=== PATIENT | male | born 1970 | race Caucasian/White ===

== ENCOUNTER 2017-09-04 17:03 | Inpatient (IN) ==
[2017-09-04] MEDS ORDERED: *HR* LORazepam 2 MG/ML VIAL IVP ONE ×2 (17:08→19:29)
[2017-09-04] MEDS ORDERED: diazePAM 10 MG/2 ML SYRINGE IVP PRN (17:18)
--- NOTE | 2017-09-04 17:19 | Emergency Department Note ---
Disposition Clinical Impression: Alcohol withdrawal delirium Suicidal behavior Qualifiers: Attempted self-injury: with attempted self-injury Qualified Code(s): T14.91XA - Suicide attempt, initial encounter Disposition: Still a Patient Condition: Fair Forms: ED Satisfaction Letter, Work/School Release Time of Disposition: 17:35 General Adult HPI - General Chief complaint: ED General Medical Stated complaint: ETOH WITHDRAWAL Source: patient Limitations: no limitations Nursing Notes Reviewed: Yes Vital Signs Reviewed: Yes - History of Present Illness HPI Narrative: 47-year-old male presents to the emergency department with concern for alcohol withdrawal. Patient was recently incarcerated for 48 hours. He was released today. He was sweaty, had chills, in the [facility]pc, patient stated he was seeing snakes. Patient stated that he tried to hurt himself today. EMS states that presents stating that he had an object tied around his neck that was attached to the bed. Patient denies any previous psychiatric history or suicide attempts. Pain Scale: 0 - Related Data Previous Rx's Medication Instructions Recorded Cyclobenzaprine [Flexeril] 10 mg PO TID PRN #15 tablet 02/10/16 Nabumetone [Relafen] 500 mg PO BID PRN #15 tablet 02/10/16 Clindamycin [Cleocin] 300 mg PO BID #20 capsule 06/23/16 HYDROcodone/Acet 5/325 mg [[place] 1 tab PO Q6H PRN #6 tab 06/23/16 5-325 mg] Albendazole [Albenza] 400 mg PO ONCE #400 mg 09/29/16 Amlodipine Besylate 2.5 mg PO DAILY #30 tablet 09/29/16 Blood Pressure Test Kit-Large 1 each MC DAILY #1 kit 09/29/16 [Blood Pressure Monitor] Ondansetron [Zofran] 8 mg PO Q8HR PRN #9 tablet 09/29/16 Allergies Allergy/AdvReac Type Severity Reaction Status Date / Time No Known Allergies Allergy Verified 10/26/15 20:06 All systems ED: reviewed and negative except as stated. Review of Systems: As Per HPI Constitutional: Reports: chills Cardiovascular: Reports: chest pain Respiratory: Denies: dyspnea Gastrointestinal: Denies: nausea, vomiting Integumentary: Denies: rash Psychiatric: Reports: suicidal thoughts, visual hallucinations Past Medical History - Past Medical History Medical history: Reports: hypertension Psychiatric history: Reports: no psych history - Social History Smoking Status: Current every day smoker Smokeless Tobacco Status: No Alcohol use: Reports: unknown Drug use: Reports: none, cocaine, opiates, IV Drug Use, prescription drug abuse Physical Exam General: 47-year-old male who is diaphoretic Head: autraumatic, EOMI, no conjuncitval pallor, no scleral icterus, Mouth: oral mucous membranes moist Neck: neck soft, trachea midline Chest:: Equal chest wall rise Lungs: Normal lungs sounds bilaterally, no wheezes, no respiratory distress Heart: normal heart sounds, tachycardic and normal rhythm, Abdomen: soft, non-tender, no rigidity, no guarding, no rebdound tenderness Lower Extremities: no pedal edema, calves non-tender Integumentary: Skin warm, dry, and intact Neuro: Alert and oriented to person, place, time. No focal neurologic deficits Psych: Anxious appearing, suicidal thoughts - General Limitations: no limitations General appearance: alert, in no apparent distress Course Vital Signs Temperature 97.1 F L 09/04/17 17:06 Pulse Rate 68 09/04/17 17:06 Respiratory Rate 20 09/04/17 17:06 Blood Pressure 189/92 09/04/17 17:06 O2 Sat by Pulse Oximetry 98 09/04/17 17:06 Temperature 97.1 F L 09/04/17 17:06 Pulse Rate 68 09/04/17 17:06 Respiratory Rate 20 09/04/17 17:06 Blood Pressure 189/92 09/04/17 17:06 O2 Sat by Pulse Oximetry 98 09/04/17 17:06 Oxygen Delivery Oxygen Delivery Room Air Medical Decision Making - [facility] Narrative Medical decision making narrative: 47-year-old male presents to the emergency department with concerns for alcohol withdrawal accompanied by suicidal behavior and thoughts, visual hallucinations , hypertension, diaphoresis. At this time, we will give this patient suicidal precautions as well as a sitter. We will obtain a urine drug screen, chest x- ray, EKG, ethanol level, salicylate level, Tylenol level, order Ci[place] protocol. Patient will be transferred over to the psychiatric area of the emergency department under the care of Dr. Lopez and Dr. Hutchison. Vital Signs Temperature 97.1 F L 09/04/17 17:06 Pulse Rate 68 09/04/17 17:06 Respiratory Rate 20 09/04/17 17:06 Blood Pressure 189/92 09/04/17 17:06 O2 Sat by Pulse Oximetry 98 09/04/17 17:06 Temperature 97.1 F L 09/04/17 17:06 Pulse Rate 68 09/04/17 17:06 Respiratory Rate 20 09/04/17 17:06 Blood Pressure 189/92 09/04/17 17:06 O2 Sat by Pulse Oximetry 98 09/04/17 17:06 Oxygen Delivery Oxygen Delivery Room Air S.B.Shantanu - S.B.A.RSobia Transition of Care: Report was provided to Dr. Lopez and Dr. Hutchison Situation: Demographics, MOA Background: Presenting Complaint, Relevant PMH, Meds, & Allergies Assessment: Vital Signs, Exam Concerns Recommendation: Barrier(s) to disposition, Recommendation based on pending studies, treatments, or consults SDavid Report Given to: Dr. Lopez and Dr. Foster SchafferASobiaRSobia Repor Time: 17:37
--- NOTE | 2017-09-04 17:36 | Emergency Department Note ---
Disposition Clinical Impression: Alcohol withdrawal delirium, Suicidal behavior Disposition: Admitted As Inpatient Condition: Critical General Adult HPI - General Chief complaint: ED General Medical Stated complaint: ETOH WITHDRAWAL Time Seen by Provider: 09/04/17 17:31 Source: patient Limitations: no limitations - History of Present Illness Pain Scale: 0 - Related Data Previous Rx's Medication Instructions Recorded Cyclobenzaprine [Flexeril] 10 mg PO TID PRN #15 tablet 02/10/16 Nabumetone [Relafen] 500 mg PO BID PRN #15 tablet 02/10/16 Clindamycin [Cleocin] 300 mg PO BID #20 capsule 06/23/16 HYDROcodone/Acet 5/325 mg [[place] 1 tab PO Q6H PRN #6 tab 06/23/16 5-325 mg] Albendazole [Albenza] 400 mg PO ONCE #400 mg 09/29/16 Amlodipine Besylate 2.5 mg PO DAILY #30 tablet 09/29/16 Blood Pressure Test Kit-Large 1 each MC DAILY #1 kit 09/29/16 [Blood Pressure Monitor] Ondansetron [Zofran] 8 mg PO Q8HR PRN #9 tablet 09/29/16 Allergies Allergy/AdvReac Type Severity Reaction Status Date / Time No Known Allergies Allergy Verified 10/26/15 20:06 Constitutional: Reports: chills Cardiovascular: Reports: chest pain Respiratory: Denies: dyspnea Gastrointestinal: Denies: nausea, vomiting Integumentary: Denies: rash Psychiatric: Reports: suicidal thoughts, visual hallucinations Past Medical History - Past Medical History Medical history: Reports: hypertension Psychiatric history: Reports: no psych history - Social History Smoking Status: Current every day smoker Smokeless Tobacco Status: No Alcohol use: Reports: unknown Drug use: Reports: none, cocaine, opiates, IV Drug Use, prescription drug abuse Physical Exam - General Limitations: no limitations General appearance: alert, in no apparent distress Course Vital Signs Temperature 97.1 F L 09/04/17 17:06 Pulse Rate 68 09/04/17 17:06 Respiratory Rate 20 09/04/17 17:06 Blood Pressure 189/92 09/04/17 17:06 O2 Sat by Pulse Oximetry 98 09/04/17 17:06 Temperature 98.3 F 09/04/17 19:17 Pulse Rate 74 09/04/17 19:17 Respiratory Rate 17 09/04/17 19:17 Blood Pressure 150/103 09/04/17 19:17 O2 Sat by Pulse Oximetry 98 09/04/17 19:17 Oxygen Delivery Oxygen Delivery Room Air Medical Decision Making - Lab Data Result diagrams: 09/04/17 17:15 09/04/17 17:19 Lab Results 09/04/17 09/04/17 09/04/17 Range/Units 17:15 17:19 17:19 WBC 8.7 (4.3-11.1) K/mcL RBC 4.89 (4.19-5.50) M/mcL Hgb 15.3 (12.9-16.9) g/dL Hct 45.9 (37.5-50.1) % MCV 93.9 (83.0-100.0) fL MCH 31.3 (28.0-33.3) pg MCHC 33.3 (31.6-35.5) g/dL RDW 12.8 (11.5-14.5) % Plt Count 231 (140-400) K/mcL MPV 10.0 (9.4-12.4) fL Immature Gran % 0.2 (0-4) % Seg Neutrophils % 57.5 % Lymphocytes % 30.8 % Monocytes % 8.8 % Eosinophils % 2.5 % Basophils % 0.2 % Neutrophils # 5.0 (1.6-8.9) K/mcL Lymphocytes # 2.7 (0.6-4.6) K/mcL Monocytes # 0.8 (0.0-1.3) K/mcL Eosinophils # 0.2 (0.0-0.6) K/mcL Basophils # 0.0 (0.0-0.2) K/mcL Sodium 141 (136-145) mEq/L Potassium 4.3 (3.5-4.5) mEq/L Chloride 109 (98-109) mEq/L Carbon Dioxide 24 (19-29) mEq/L BUN 15 (8-26) mg/dL Creatinine 1.23 (0.72-1.25) mg/dL Est GFR ( Amer) > 60 (> 60) Est GFR (Non-Af Amer) > 60 (> 60) BUN/Creatinine Ratio 12 (6-26) Glucose 104 H (70-99) mg/dL Calculated Osmolality 293 (280-300) Calcium 9.3 (8.6-10.8) mg/dL Total Bilirubin 0.6 (0.2-1.2) mg/dL AST 72 H (5-34) Units/L ALT 163 H (0-55) Units/L Alkaline Phosphatase 98 (38-126) Units/L Troponin I 0.00 (0-0.03) ng/mL Serum Total Protein 7.6 (6.0-8.3) g/dL Albumin 3.7 (3.5-5.0) g/dL Globulin 3.9 H (2.4-3.5) g/dL Albumin/Globulin Ratio 0.9 L (1.1-2.2) Salicylates < 5.0 L (15-30) mg/dL Acetaminophen < 1.0 L (10-30) mcg/mL Ethyl Alcohol < 10 (0-10) mg/dL Attestation Statement - Attestation Attestation: I examined this patient and my medical decision-making was reviewed with the Resident Physician. I agree with the documented findings, disposition and treatment plan as described except to the extent set forth below. [id number] time providing Patient sent from the half-way due to suspected alcohol withdrawal. Patient drinks 18 beers daily. Last drink 48 hours ago. He appears in no acute distress on exam. He admitted to the other providers that he was suicidal
[2017-09-04 17:41] LABS: Alanine Aminotransferase 163 Units/L (0-55); Albumin 3.7 g/dL (3.5-5.0); Albumin/Globulin Ratio 0.9 (1.1-2.2); Alkaline Phosphatase 98 Units/L (38-126); Aspartate Amino Transferase 72 Units/L (5-34); BUN/Creatinine Ratio 12 (6-26); Bilirubin,Total 0.6 mg/dL (0.2-1.2); Blood Urea Nitrogen 15 mg/dL (8-26); Calcium 9.3 mg/dL (8.6-10.8); Carbon Dioxide 24 mEq/L (19-29); Chloride 109 mEq/L (98-109); Globulin 3.9 g/dL (2.4-3.5); Glucose 104 mg/dL (70-99); Osmolality,Calculated 293 (280-300); Potassium 4.3 mEq/L (3.5-4.5); Sodium 141 mEq/L (136-145); Total Protein 7.6 g/dL (6.0-8.3); eGFR For African Americans > 60 (> 60); eGFR For Non-African Americans > 60 (> 60)
--- NOTE | 2017-09-04 17:49 | Emergency Department Note ---
Disposition Clinical Impression: Alcohol withdrawal delirium Suicidal behavior Qualifiers: Attempted self-injury: with attempted self-injury Qualified Code(s): T14.91XA - Suicide attempt, initial encounter Disposition: Admitted As Inpatient Condition: Critical Referrals: NONE,PCP [Primary Care Provider] - Forms: ED Satisfaction Letter, Work/School Release Time of Disposition: 18:34 General Adult HPI - General Chief complaint: ED General Medical Stated complaint: ETOH WITHDRAWAL Time Seen by Provider: 09/04/17 17:31 Source: patient Limitations: no limitations Nursing Notes Reviewed: Yes Vital Signs Reviewed: Yes - History of Present Illness HPI Narrative: Patient received as sign-out from Dr. Mora and Dr. Roman. Please refer to their note for intake history and physical exam. Mr. Menezes, a 47-year-old male, presents after being released from [facility] home for evaluation of suspected alcohol withdrawal. Patient has a long-standing history of every day consumption of 1812 ounce cans of beer +2 pints of liquor. Last drink was 48 hours ago. He reportedly had visual hallucinations of snakes crawling around him earlier today and was found in group home with a sheet tied around his neck. He admits to suicidal ideations at that time but denies suicidal or homicidal ideations at this time. PMH: Alcoholism. No psychiatric history. SH: None Medications: None Allergies: None Pain Scale: 0 - Related Data Previous Rx's Medication Instructions Recorded Cyclobenzaprine [Flexeril] 10 mg PO TID PRN #15 tablet 02/10/16 Nabumetone [Relafen] 500 mg PO BID PRN #15 tablet 02/10/16 Clindamycin [Cleocin] 300 mg PO BID #20 capsule 06/23/16 HYDROcodone/Acet 5/325 mg [[place] 1 tab PO Q6H PRN #6 tab 06/23/16 5-325 mg] Albendazole [Albenza] 400 mg PO ONCE #400 mg 09/29/16 Amlodipine Besylate 2.5 mg PO DAILY #30 tablet 09/29/16 Blood Pressure Test Kit-Large 1 each MC DAILY #1 kit 09/29/16 [Blood Pressure Monitor] Ondansetron [Zofran] 8 mg PO Q8HR PRN #9 tablet 09/29/16 Allergies Allergy/AdvReac Type Severity Reaction Status Date / Time No Known Allergies Allergy Verified 10/26/15 20:06 All systems ED: reviewed and negative except as stated. Review of Systems: As Per HPI Constitutional: Reports: chills Cardiovascular: Reports: chest pain Respiratory: Denies: dyspnea Gastrointestinal: Denies: nausea, vomiting Integumentary: Denies: rash Psychiatric: Reports: suicidal thoughts, visual hallucinations Past Medical History - Past Medical History Medical history: Reports: hypertension Psychiatric history: Reports: no psych history - Social History Smoking Status: Current every day smoker Smokeless Tobacco Status: No Alcohol use: Reports: unknown Drug use: Reports: none, cocaine, opiates, IV Drug Use, prescription drug abuse Physical Exam Vital Signs Reviewed General: Patient is alert, oriented, and in no acute distress. Patient is hypertensive, skin cool and clammy. HEENT: No facial asymmetry. Head is normocephalic and atraumatic. PERRLA, EOMI. because moist. Trachea midline. Cardiovascular: Heart regular rate and rhythm without clicks, rubs, gallops, or murmurs. No JVD. PMI nondisplaced. Radial pulses 2/4 equal. Respiratory: Symmetric chest rise with good respiratory effort. Bilateral breath sounds are clear without wheezing, crackles, or rhonchi. Abdomen: Bowel sounds present normoactive x-4 quadrants. Abdomen is soft, nondistended, and nontender. Musculoskeletal: Muscle strength 5/5 and symmetric bilaterally in upper and lower extremities. Neuro: Cranial nerves II through XII without deficit. Sensation light touch intact. Psych: Patient's affect is appropriate for situation. - General Limitations: no limitations General appearance: alert, in no apparent distress Course Course Narrative: Patient presents for evaluation of alcohol withdrawal. Patient has been in alcohol withdrawal previously and states this is the worst he is experienced. He has a history of chronic alcoholism with previous history of polysubstance abuse. Currently only uses alcohol. I discussed the patient my concern about his withdrawal and how alcohol withdrawal can be deadly. He agrees to admission overnight for continued evaluation and management. Patient symptomatically is substantially improved after 2 mg Ativan. He has also received a thiamine. I discussed the patient with the admitting hospitalist, Dr. Bustamante, who agrees to accept the patient Vital Signs Temperature 97.1 F L 09/04/17 17:06 Pulse Rate 68 09/04/17 17:06 Respiratory Rate 20 09/04/17 17:06 Blood Pressure 189/92 09/04/17 17:06 O2 Sat by Pulse Oximetry 98 09/04/17 17:06 Temperature 97.1 F L 09/04/17 17:06 Pulse Rate 68 09/04/17 17:06 Respiratory Rate 20 09/04/17 17:06 Blood Pressure 189/92 09/04/17 17:06 O2 Sat by Pulse Oximetry 98 09/04/17 17:06 Oxygen Delivery Oxygen Delivery Room Air Medical Decision Making - Lab Data Lab results reviewed: Yes I reviewed the patient's lab results. Result diagrams: 09/04/17 17:15 09/04/17 17:19 Lab Results 09/04/17 09/04/17 09/04/17 Range/Units 17:15 17:19 17:19 WBC 8.7 (4.3-11.1) K/mcL RBC 4.89 (4.19-5.50) M/mcL Hgb 15.3 (12.9-16.9) g/dL Hct 45.9 (37.5-50.1) % MCV 93.9 (83.0-100.0) fL MCH 31.3 (28.0-33.3) pg MCHC 33.3 (31.6-35.5) g/dL RDW 12.8 (11.5-14.5) % Plt Count 231 (140-400) K/mcL MPV 10.0 (9.4-12.4) fL Immature Gran % 0.2 (0-4) % Seg Neutrophils % 57.5 % Lymphocytes % 30.8 % Monocytes % 8.8 % Eosinophils % 2.5 % Basophils % 0.2 % Neutrophils # 5.0 (1.6-8.9) K/mcL Lymphocytes # 2.7 (0.6-4.6) K/mcL Monocytes # 0.8 (0.0-1.3) K/mcL Eosinophils # 0.2 (0.0-0.6) K/mcL Basophils # 0.0 (0.0-0.2) K/mcL Sodium 141 (136-145) mEq/L Potassium 4.3 (3.5-4.5) mEq/L Chloride 109 (98-109) mEq/L Carbon Dioxide 24 (19-29) mEq/L BUN 15 (8-26) mg/dL Creatinine 1.23 (0.72-1.25) mg/dL Est GFR ( Amer) > 60 (> 60) Est GFR (Non-Af Amer) > 60 (> 60) BUN/Creatinine Ratio 12 (6-26) Glucose 104 H (70-99) mg/dL Calculated Osmolality 293 (280-300) Calcium 9.3 (8.6-10.8) mg/dL Total Bilirubin 0.6 (0.2-1.2) mg/dL AST 72 H (5-34) Units/L ALT 163 H (0-55) Units/L Alkaline Phosphatase 98 (38-126) Units/L Troponin I 0.00 (0-0.03) ng/mL Serum Total Protein 7.6 (6.0-8.3) g/dL Albumin 3.7 (3.5-5.0) g/dL Globulin 3.9 H (2.4-3.5) g/dL Albumin/Globulin Ratio 0.9 L (1.1-2.2) Salicylates < 5.0 L (15-30) mg/dL Acetaminophen < 1.0 L (10-30) mcg/mL Ethyl Alcohol < 10 (0-10) mg/dL - Radiology Data Radiology results reviewed: Yes I reviewed the patient's radiology results. - EKG Data EKG #1 EKG attestation: Yes I reviewed and interpreted this EKG. EKG results narrative: EKG dated 04 September 2017 at 18:10 interpreted as sinus rhythm with a rate of 68. NC 196, QRS 118, QT/QTc 402/418. Mild IVCD. Normal axis. Nonspecific ST T changes. Compared to previous EKG dated 10/26/2015 showing no acute ischemic changes.
[2017-09-04 17:54] LABS: Acetaminophen < 1.0 mcg/mL (10-30); Ethanol < 10 mg/dL (0-10); Salicylate < 5.0 mg/dL (15-30)
[2017-09-04] MEDS ORDERED: Thiamine (B-1) 100 MG, Folic Acid 1 MG, MVI, adult with vitamin K 10 ML in 0.9 % Sodi... IVPB SCH (18:00)
[2017-09-04 18:09] LABS: Basophils % 0.2 %; Eosinophils # 0.2 K/mcL (0.0-0.6); Eosinophils % 2.5 %; Hematocrit 45.9 % (37.5-50.1); Hemoglobin 15.3 g/dL (12.9-16.9); Immature Granulocytes % 0.2 % (0-4); Lymphocytes # 2.7 K/mcL (0.6-4.6); Lymphocytes % 30.8 %; Mean Corpuscular HGB Conc 33.3 g/dL (31.6-35.5); Mean Corpuscular Hemoglobin 31.3 pg (28.0-33.3); Mean Corpuscular Volume 93.9 fL (83.0-100.0); Monocytes # 0.8 K/mcL (0.0-1.3); Monocytes % 8.8 %; Platelet Count 231 K/mcL (140-400); Red Blood Count 4.89 M/mcL (4.19-5.50); Red Cell Distribution Width 12.8 % (11.5-14.5); Segmented Neutrophils % 57.5 %
[2017-09-04] MEDS ORDERED: Acetaminophen 325 MG TABLET PO ONE (18:32)
[2017-09-04] MEDS ORDERED: *HR* LORazepam 2 MG/ML VIAL IVP PRN ×2 (19:42)
[2017-09-04] MEDS ORDERED: Ipratropium/Albuterol Neb 3 ML IH PRN (19:44)
[2017-09-04] MEDS ORDERED: Acetaminophen 325 MG TABLET PO PRN (19:45)
[2017-09-04] MEDS ORDERED: Mag Hydrox/Al Hydrox/Simeth 30 ML UDC PO PRN (19:45)
[2017-09-04] MEDS ORDERED: Naloxone 0.4 MG/ML INJ IVP PRN (19:45)
[2017-09-04] MEDS ORDERED: *HR* Morphine 2 MG/ML SYRINGE IVP PRN (19:45)
[2017-09-04] MEDS ORDERED: Ondansetron 4 MG/2 ML VIAL IVP PRN (19:45)
--- NOTE | 2017-09-04 19:56 | Internal Med History&Physical ---
Date of Encounter: 09/04/17 Time of Encounter: 19:53 Assessment and Plan (1) Alcohol withdrawal delirium Current visit: Yes Status: Acute acute alcohol withdrawal start librium and taper ATIVAN iv Per CIWA scale transfer to 2 N, may start Precedex if needed Sitter Psych consult due to suicedal ideation Banana bag, thiamine, Folate and B complex Omeprazole for Gi, sub Q heparin , Admitted as inpatient, expected to stay here more than 2 midnights, full code, time spent: 40 min Urine tox screen (2) Suicidal behavior Current visit: Yes Status: Acute Qualifiers: Attempted self-injury: with attempted self-injury Qualified Code(s): T14.91XA - Suicide attempt, initial encounter (3) Tobacco abuse Current visit: Yes Status: Acute Smoking cessation counseling, nicotine patch (4) Accelerated hypertension Current visit: Yes Status: Acute Continue amlodipine, hydralazine IV as needed (5) Polysubstance abuse Current visit: Yes Status: Acute send a urine tox screen (6) Transaminitis Current visit: Yes Status: Acute Likely related to alcohol, although ALT is higher may check for Hep C Internal Medicine - H&P: HPI Chief complaint: Symptoms of alcohol withdrawal Admitted From: Emergency Dept History of present illness: Mr. Vale is a 47 year old male with a past medical history of suicidal ideation, tobacco use, polysubstance abuse who came to the emergency room complaining of symptoms of alcohol withdrawal, apparently, he was incarcerated for 48 hours and got released earlier today, he was sweaty and having hallucinations seeing snakes in the floor. According to prior notes he tried to hurt himself earlier and had suicidal ideations, was found with a rope around his neck. He mentions that he drinks about 18 beers a day and 2 pints of hard liquor/Gin almost every day. He is shaking, his AST 72 ALT 163. Blood pressure 189/97. Has received so far 2.5 mg of diazepam and 2 mg of Ativan. Alcohol level was less than 10. Urine tox screen has not been performed yet. Says that he is not having any suicidal ideation at the moment and does not want to harm himself or others. Past Med Surg Social Fam HX - Past Medical History Medical history: hypertension, other (Hypertension, alcohol abuse, polysubstance abuse, anxiety, tobacco use) Psychiatric history: depression, other (Suicidal ideation in the past) - Past Surgical History Surgical History: other (Had a throat cyst removed) - Social History Smoking Status: Current every day smoker Packs per day: One pack per day Smokeless Tobacco Status: No Alcohol use: heavy (2 pints of gin and 18 beers almost every day) Drug use: none, cocaine, opiates, IV Drug Use, prescription drug abuse - Additional Family History Additional family history: Mother with diabetes and father with a myocardial infarction in his 50s Internal Medicine - H&P: Meds Cyclobenzaprine [Flexeril] 10 mg PO TID PRN #15 tablet 02/10/16 [Rx] Nabumetone [Relafen] 500 mg PO BID PRN #15 tablet 02/10/16 [Rx] Clindamycin [Cleocin] 300 mg PO BID #20 capsule 06/23/16 [Rx] HYDROcodone/Acet 5/325 mg [[place] 5-325 mg] 1 tab PO Q6H PRN #6 tab 06/23/16 [Rx] Albendazole [Albenza] 400 mg PO ONCE #400 mg 09/29/16 [Rx] Amlodipine Besylate 2.5 mg PO DAILY #30 tablet 09/29/16 [Rx] Blood Pressure Test Kit-Large [Blood Pressure Monitor] 1 each MC DAILY #1 kit [Rx] Ondansetron [Zofran] 8 mg PO Q8HR PRN #9 tablet 09/29/16 [Rx] 3 Allergy/AdvReac Type Severity Reaction Status Date / Time No Known Allergies Allergy Verified 10/26/15 20:06 All Systems PM: A 10-system review of systems was performed and is negative for pertinent findings except as documented above in the HPI. Review of systems: Denies chest pain, shortness of breath, other systems out of the 10 reviewed were negative - Constitutional Vitals: Temp Pulse Resp BP Pulse Ox 98.3 F 74 17 150/103 98 09/04/17 19:17 09/04/17 19:17 09/04/17 19:17 09/04/17 19:17 09/04/17 19:17 General appearance: Present: A&O X 3 - Head Head exam: Present: atraumatic, normocephalic - Eye Eye exam: Present: PERRL, conjuntiva pink, sclera anicteric Pupils: Present: PERRL - Neck Neck exam general surgery: Present: supple, trachea midline. Absent: lymphadenopathy - Respiratory Respiratory exam: Present: CTAB. Absent: accessory muscle use, rales, rhonchi, wheezes - Cardiovascular Cardiovascular exam: Present: RRR, +S1, +S2. Absent: diastolic murmur, gallop, rubs, systolic murmur - GI/Abdominal GI/Abdominal exam: Present: normal bowel sounds, soft, no peritoneal signs. Absent: distended, tenderness Additional comments: Tremors very evident in both hands, patient is very anxious - Extremities Exam Extremities exam: Present: warm, radial pulses palpable and symmetrical. Absent : calf tenderness, cyanotic, pedal edema - Neurological Exam Neurological exam: Present: CN II-XII intact, oriented X3, no focal deficits. Absent: pronater drift, facial droop, speech deficit - Skin Skin exam: Present: dry, intact Internal Med - H&P Results - Labs CBC & Chem 7: 09/04/17 17:15 09/04/17 17:19
[2017-09-04] MEDS: Nicotine 21 MG PATCH.TD24 TD SCH (21:30)
[2017-09-04] MEDS: amLODIPine 5 MG TABLET PO SCH (21:30)
[2017-09-04] MEDS ORDERED: Dexmedetomidine HCl 400 MCG/100 ML MLS IVC ONE (22:32)
[2017-09-04] MEDS: *HR* LORazepam 2 MG/ML VIAL IVP PRN (22:33)
[2017-09-04] MEDS: Dexmedetomidine HCl 400 MCG/100 ML MLS IVC SCH (22:34)
--- NOTE | 2017-09-04 23:48 | Emergency Department Note ---
START Narrative - START START: I did not see this patient as it was turned over to Dr Lopez It was assigned to me initially but I did not see this patient as it was sent over to a different bed in the ER. Please regard this Dr Jac Roman
[2017-09-05 00:24] LABS: Amphetamine Screen,Urine Negative ng/mL (Cutoff=1000); Barbiturate Screen,Urine Negative ng/mL (Cutoff=200); Benzodiazepines Screen,Urine Positive ng/mL (Cutoff=200); Cannabinoid Screen,Urine Negative ng/mL (Cutoff = 50); Cocaine Screen,Urine Positive ng/mL (Cutoff= 300); Opiate Screen,Urine Negative ng/mL (Cutoff=300); Phencyclidine Screen,Urine Negative ng/mL (Cutoff=25)
[2017-09-05] MEDS: *HR* LORazepam 2 MG/ML VIAL IVP PRN (02:03)
[2017-09-05 02:17] LABS: Bilirubin,Urine Negative (Negative); Blood,Urine Negative (Negative); Clarity,Urine Clear (Clear); Color,Urine Yellow (Yellow); Glucose,Urine (UA) Normal (Normal); Ketones,Urine Negative (Negative); Leukocyte Esterase,Urine Negative (Negative); Nitrite,Urine Negative (Negative); Protein,Urine Negative (Neg-Trace); Specific Gravity,Urine 1.028 (1.010-1.025); Urobilinogen,Urine Normal (Normal)
[2017-09-05] MEDS ORDERED: *HR* LORazepam 2 MG/ML VIAL ONE ×3 (02:18→03:31)
[2017-09-05] MEDS ORDERED: *HR* LORazepam 2 MG/ML VIAL IVP PRN ×2 (02:27)
[2017-09-05] MEDS ORDERED: *HR* LORazepam 2 MG/ML VIAL IVP ONE ×2 (02:31→03:11)
[2017-09-05] MEDS ORDERED: diazePAM 10 MG/2 ML SYRINGE IVP ONE (02:55)
[2017-09-05] MEDS ORDERED: diazePAM 10 MG/2 ML SYRINGE ONE (02:57)
[2017-09-05 03:11] LABS: BUN/Creatinine Ratio 13 (6-26); Blood Urea Nitrogen 16 mg/dL (8-26); Calcium 8.4 mg/dL (8.6-10.8); Carbon Dioxide 21 mEq/L (19-29); Chloride 111 mEq/L (98-109); Glucose 170 mg/dL (70-99); Osmolality,Calculated 297 (280-300); Potassium 3.6 mEq/L (3.5-4.5); Sodium 141 mEq/L (136-145); eGFR For African Americans > 60 (> 60); eGFR For Non-African Americans > 60 (> 60)
[2017-09-05] MEDS: Dexmedetomidine HCl 400 MCG/100 ML MLS IVC SCH ×4 (04:29→23:43)
[2017-09-05] MEDS ORDERED: *HR* Heparin 5,000 UNIT/ML VIAL SQ SCH (06:00)
[2017-09-05 07:47] LABS: Magnesium 2.1 mg/dL (1.6-2.6)
--- NOTE | 2017-09-05 08:29 | Consult Note ---
Date of Encounter: 09/05/17 Time of Encounter: 08:26 Assessment & Recommendation (1) Suicidal behavior Current visit: Yes Status: Acute Assessment & Recommendation: Unable to assess client due to heavy sedation. Has received Ativan, Valium, and Librium to manage alcohol withdrawal. Reportedly engaged in a suicide attempt in long term by tying a sheet around his neck. Has denied SI since arriving at [place] but has been in acute alcohol withdrawal the entire time. Cannot fully assess safety issues until he is more stable from alcohol withdrawal. No documented psych history but would be helpful to get collateral info from someone familiar with him. Client told nurse girlfriend was coming to pick him up. If someone could reach out to her or a relative for information on client that would be helpful. Would be good to know if family has any safety concerns about him as well. If client becomes more alert can contact psych to reassess. Qualifiers: Attempted self-injury: with attempted self-injury Qualified Code(s): T14.91XA - Suicide attempt, initial encounter History of Present Illness Requesting Physician: Dario Cuba Reason for consult: SI History of present illness: Mr. Vale is a 47 year old male who reportedly made a suicide attempt in long term by tying a sheet around his neck. Client withdrawing from alcohol at time and was supposedly having visual hallucinations. Has denied SI since arriving at [place] but he has also been withdrawing from alcohol the entire time so safety issues are still a concern. Combative last night and grabbed a staff member. Told nurse his girlfriend was coming to pick him up and he intended to leave. Has received high doses of benzos to control withdrawal symptoms including Ativan, Valium, and Librium. Unable to be roused today. CC: Dario Cuba Past Med Surg Social Fam HX - Past Medical History Medical history: hypertension - Past Psychiatric History Psychiatric history: Reports: no psych history Past psychiatric history details: No documented psych history but unable to verify with client due to heavy sedation at this time. - Past Surgical History Surgical History: other - Social History Smoking Status: Current every day smoker Smokeless Tobacco Status: No Alcohol use: unknown Drug use: none, cocaine, opiates, IV Drug Use, prescription drug abuse - Family History Mother Hx Family Endocrine Disorder: Yes (DM) Medications & Allergies Cyclobenzaprine [Flexeril] 10 mg PO TID PRN #15 tablet 02/10/16 [Rx] Nabumetone [Relafen] 500 mg PO BID PRN #15 tablet 02/10/16 [Rx] Clindamycin [Cleocin] 300 mg PO BID #20 capsule 06/23/16 [Rx] HYDROcodone/Acet 5/325 mg [[place] 5-325 mg] 1 tab PO Q6H PRN #6 tab 06/23/16 [Rx] Albendazole [Albenza] 400 mg PO ONCE #400 mg 09/29/16 [Rx] Amlodipine Besylate 2.5 mg PO DAILY #30 tablet 09/29/16 [Rx] Blood Pressure Test Kit-Large [Blood Pressure Monitor] 1 each MC DAILY #1 kit [Rx] Ondansetron [Zofran] 8 mg PO Q8HR PRN #9 tablet 09/29/16 [Rx] 3 Allergy/AdvReac Type Severity Reaction Status Date / Time No Known Allergies Allergy Verified 10/26/15 20:06 Review of Systems Constitutional: Denies: fever, chills, weakness, weight change Eyes: Denies: eye pain, vision change Ears, Nose, Throat: Denies: ear pain, throat pain, dental pain, hearing loss, congestion Cardiovascular: Denies: chest pain, palpitations, dyspnea on exertion Respiratory: Denies: cough, dyspnea, wheezes Gastrointestinal: Denies: abdominal pain, nausea, vomiting, diarrhea, constipation Genitourinary male: Denies: urgency, dysuria, frequency, genital lesions Genitourinary female: Denies: urgency, dysuria, frequency, abnormal menses, dyspareunia Musculoskeletal: Denies: joint swelling, joint pain Integumentary: Denies: rash, lesions, pruritus Neurological: Denies: headache, weakness, numbness, memory loss Endocrine: Denies: fatigue, heat or cold intolerance Hematologic/Lymphatic: Denies: easy bruising, lymphadenopathy Allergic/Immunologic: Denies: urticaria, itchy eyes Mental Status Exam Patient orientation: Yes Other Level of alertness: Sedated Patient appearance: Appropriate Behavior: other Psychomotor activity: Normal Eye contact: No Eye Contact Mood description: Other Patient description of mood: unable to assess Affect description: other Speech pattern: Non-verbal Speech volume: No speech Judgment: Poor Insight: Minimal Results - Vital Signs Vital signs: Temp Pulse Resp BP Pulse Ox 96.0 F L 44 18 112/73 95 09/05/17 08:00 09/05/17 07:41 09/05/17 07:41 09/05/17 07:41 09/05/17 07:41 - Drug Levels and Toxicology Drug Levels and Toxicology: Drug Levels and Toxicity 09/04/17 23:55 Urine Opiates Screen Negative Ur Barbiturates Screen Negative Ur Phencyclidine Scrn Negative Ur Amphetamines Screen Negative U Benzodiazepines Scrn Positive H Urine Cocaine Screen Positive H U Marijuana (THC) Screen Negative - Labs Labs: Laboratory Last Values WBC 8.7 K/mcL (4.3-11.1) 09/04/17 17:15 RBC 4.89 M/mcL (4.19-5.50) 09/04/17 17:15 Hgb 15.3 g/dL (12.9-16.9) 09/04/17 17:15 Hct 45.9 % (37.5-50.1) 09/04/17 17:15 MCV 93.9 fL (83.0-100.0) 09/04/17 17:15 MCH 31.3 pg (28.0-33.3) 09/04/17 17:15 MCHC 33.3 g/dL (31.6-35.5) 09/04/17 17:15 RDW 12.8 % (11.5-14.5) 09/04/17 17:15 Plt Count 231 K/mcL (140-400) 09/04/17 17:15 MPV 10.0 fL (9.4-12.4) 09/04/17 17:15 Immature Gran % 0.2 % (0-4) 09/04/17 17:15 Seg Neutrophils % 57.5 % 09/04/17 17:15 Lymphocytes % 30.8 % 09/04/17 17:15 Monocytes % 8.8 % 09/04/17 17:15 Eosinophils % 2.5 % 09/04/17 17:15 Basophils % 0.2 % 09/04/17 17:15 Neutrophils # 5.0 K/mcL (1.6-8.9) 09/04/17 17:15 Lymphocytes # 2.7 K/mcL (0.6-4.6) 09/04/17 17:15 Monocytes # 0.8 K/mcL (0.0-1.3) 09/04/17 17:15 Eosinophils # 0.2 K/mcL (0.0-0.6) 09/04/17 17:15 Basophils # 0.0 K/mcL (0.0-0.2) 09/04/17 17:15 Sodium 141 mEq/L (136-145) 09/05/17 02:30 Potassium 3.6 mEq/L (3.5-4.5) 09/05/17 02:30 Chloride 111 mEq/L (98-109) H 09/05/17 02:30 Carbon Dioxide 21 mEq/L (19-29) 09/05/17 02:30 BUN 16 mg/dL (8-26) 09/05/17 02:30 Creatinine 1.26 mg/dL (0.72-1.25) H 09/05/17 02:30 Est GFR ( Amer) > 60 (> 60) 09/05/17 02:30 Est GFR (Non-Af Amer) > 60 (> 60) 09/05/17 02:30 BUN/Creatinine Ratio 13 (6-26) 09/05/17 02:30 Glucose 170 mg/dL (70-99) H 09/05/17 02:30 POC Glucose 106 (58-89) H 09/04/17 22:07 Calculated Osmolality 297 (280-300) 09/05/17 02:30 Calcium 8.4 mg/dL (8.6-10.8) L 09/05/17 02:30 Magnesium 2.1 mg/dL (1.6-2.6) 09/05/17 02:30 Total Bilirubin 0.6 mg/dL (0.2-1.2) 09/04/17 17:19 AST 72 Units/L (5-34) H 09/04/17 17:19 ALT 163 Units/L (0-55) H 09/04/17 17:19 Alkaline Phosphatase 98 Units/L (38-126) 09/04/17 17:19 Troponin I 0.00 ng/mL (0-0.03) 09/04/17 17:19 Serum Total Protein 7.6 g/dL (6.0-8.3) 09/04/17 17:19 Albumin 3.7 g/dL (3.5-5.0) 09/04/17 17:19 Globulin 3.9 g/dL (2.4-3.5) H 09/04/17 17:19 Albumin/Globulin Ratio 0.9 (1.1-2.2) L 09/04/17 17:19 Urine Color Yellow (Yellow) 09/04/17 23:55 Urine Clarity Clear (Clear) 09/04/17 23:55 Urine pH 7.0 pH Units (5.0-8.0) 09/04/17 23:55 Ur Specific [place] 1.028 (1.010-1.025) H 09/04/17 23:55 Urine Protein Negative mg/dL (Neg-Trace) 09/04/17 23:55 Urine Glucose (UA) Normal mg/dL (Normal) 09/04/17 23:55 Urine Ketones Negative mg/dL (Negative) 09/04/17 23:55 Urine Blood Negative (Negative) 09/04/17 23:55 Urine Nitrite Negative (Negative) 09/04/17 23:55 Urine Bilirubin Negative (Negative) 09/04/17 23:55 Urine Urobilinogen Normal mg/dL (Normal) 09/04/17 23:55 Ur Leukocyte Esterase Negative (Negative) 09/04/17 23:55 Ur Culture Indicated? NO (NO) 09/04/17 23:55 Salicylates < 5.0 mg/dL (15-30) L 09/04/17 17:19 Urine Opiates Screen Negative ng/mL (Pyclpi=361) 09/04/17 23:55 Acetaminophen < 1.0 mcg/mL (10-30) L 09/04/17 17:19 Ur Barbiturates Screen Negative ng/mL (Pnqbpp=650) 09/04/17 23:55 Ur Phencyclidine Scrn Negative ng/mL (Cutoff=25) 09/04/17 23:55 Ur Amphetamines Screen Negative ng/mL (Gnfxvn=1275) 09/04/17 23:55 U Benzodiazepines Scrn Positive ng/mL (Cjpoum=881) H 09/04/17 23:55 Urine Cocaine Screen Positive ng/mL (Cutoff= 300) H 09/04/17 23:55 U Marijuana (THC) Screen Negative ng/mL (Cutoff = 50) 09/04/17 23:55 Ethyl Alcohol < 10 mg/dL (0-10) 09/04/17 17:19 Consult Discharge Plan - Plan Referrals: NONE,PCP [Primary Care Provider] -
[2017-09-05] MEDS ORDERED: Vitamin B Complex/Vit C/Vit E 1 EACH TABLET PO SCH (09:00)
[2017-09-05] MEDS ORDERED: Folic Acid 1 MG TABLET PO SCH (09:00)
[2017-09-05] MEDS ORDERED: D5% in 0.45% NACL 1,000 ML IVC SCH (09:00)
[2017-09-05] MEDS ORDERED: Thiamine (B-1) 100 MG TABLET PO SCH (09:00)
--- NOTE | 2017-09-05 09:05 | Pulmonology Consult Note ---
<NahumAdrien Neda - Last Filed: 09/05/17 09:08> Date of Encounter: 09/05/17 Time of Encounter: 09:03 Assessment and Plan (1) Alcohol withdrawal delirium Current Visit: Yes Status: Acute The amount of patient's alcohol use is unclear however records show that the patient drinks 2 pints of gin and 18 beers daily. Patient had withdrawal symptoms overnight and was given Ativan and Librium however this did not control symptoms was placed on Precedex. At this time the patient remains on Precedex and is heavily sedated. We will attempt to wean down Precedex. Continue CIWA protocol. Supplement B12 and thiamine. (2) Suicidal behavior Current Visit: Yes Status: Acute The patient apparently attempted suicide while incarcerated. At this time the patient remains heavily sedated so psychiatric evaluation is on hold until the patient's acute alcohol withdrawal is treated and he can be further evaluated by psychiatry. Qualifiers: Attempted self-injury: with attempted self-injury Qualified Code(s): T14.91XA - Suicide attempt, initial encounter (3) Transaminitis Current Visit: Yes Status: Acute Likely related to alcohol use. No elevation in bilirubin. Acute alcoholic hepatitis appears unlikely given his normal bilirubin however we will recheck the bilirubin and check a PT/INR to evaluate the discriminant function for possible need of steroid therapy in the setting of alcoholic hepatitis. History of Present Illness Consult date: 09/05/17 Requesting physician: Dario Cuba Reason for consult: other Chief complaint: Alcohol withdrawal/suicidal ideation History of present illness: Patient seen and examined at bedside. Patient is heavily sedated at this time and cannot participate in history taking. Review of records reveal the patient was incarcerated and while incarcerated and had episodes of diaphoresis and chills and began with visual hallucinations. There is report that the patient attempted to harm himself by tying a sheet around his neck. Past Med Surg Social Fam HX - Past Medical History Medical history: hypertension Psychiatric history: no psych history - Past Surgical History Surgical History: other - Social History Smoking Status: Current every day smoker Packs per day: One pack per day Smokeless Tobacco Status: No Alcohol use: unknown Drug use: none, cocaine, opiates, IV Drug Use, prescription drug abuse - Family History Mother Hx Family Endocrine Disorder: Yes (DM) Medications and Allergies 3 Allergy/AdvReac Type Severity Reaction Status Date / Time No Known Allergies Allergy Verified 09/05/17 10:14 ROS unobtainable: due to mental status All Systems: A 10-system review of systems was performed and is negative for pertinent findings except as documented above in the HPI. Physical Examination Vital Signs: Vital Signs, Last 4 Hours Temp Pulse Resp BP Pulse Ox 09/05/17 08:00 96.0 F L 09/05/17 07:41 44 18 112/73 95 09/05/17 06:00 48 14 109/80 94 General appearance: asleep ENT: oropharynx moist Effort: normal Auscultation: bilateral: clear Cardiovascular: regular rate and rhythm (Bradycardic) Gastrointestinal: hypoactive bowel sounds, soft, non-tender Extremities: no cyanosis, no edema, no clubbing unable to assess due to mental status Results - Laboratory Findings CBC and BMP: 09/04/17 17:15 09/05/17 02:30 Abnormal lab findings: Abnormal lab results Chloride 111 mEq/L (98-109) H 09/05/17 02:30 Creatinine 1.26 mg/dL (0.72-1.25) H 09/05/17 02:30 Glucose 170 mg/dL (70-99) H 09/05/17 02:30 POC Glucose 106 (58-89) H 09/04/17 22:07 Calcium 8.4 mg/dL (8.6-10.8) L 09/05/17 02:30 AST 72 Units/L (5-34) H 09/04/17 17:19 ALT 163 Units/L (0-55) H 09/04/17 17:19 Globulin 3.9 g/dL (2.4-3.5) H 09/04/17 17:19 Albumin/Globulin Ratio 0.9 (1.1-2.2) L 09/04/17 17:19 Ur Specific [place] 1.028 (1.010-1.025) H 09/04/17 23:55 Salicylates < 5.0 mg/dL (15-30) L 09/04/17 17:19 Acetaminophen < 1.0 mcg/mL (10-30) L 09/04/17 17:19 U Benzodiazepines Scrn Positive ng/mL (Yfgzha=812) H 09/04/17 23:55 Urine Cocaine Screen Positive ng/mL (Cutoff= 300) H 09/04/17 23:55 - Clinical Findings Intake & Output: Intake & Output 09/04/17 09/05/17 09/05/17 23:59 07:59 15:59 Intake Total 263 / 463 608.2 / 608.2 Output Total 350 / 350 0 / 0 0 / 0 Balance -87 / 113 608.2 / 608.2 0 / 0 Weight 96.4 kg Consult Discharge Plan - Plan Referrals: NONE,PCP [Primary Care Provider] - <Fernando Jarvis - Last Filed: 09/05/17 10:20> Date of Encounter: 09/05/17 All Systems: A 10-system review of systems was performed and is negative for pertinent findings except as documented above in the HPI. Physical Examination Vital Signs: Vital Signs, Last 4 Hours Temp Pulse Resp BP Pulse Ox 09/05/17 08:00 96.0 F L 09/05/17 07:41 44 18 112/73 95 09/05/17 06:00 48 14 109/80 94 Results - Laboratory Findings CBC and BMP: 09/04/17 17:15 09/05/17 02:30 Abnormal lab findings: Abnormal lab results Chloride 111 mEq/L (98-109) H 09/05/17 02:30 Creatinine 1.26 mg/dL (0.72-1.25) H 09/05/17 02:30 Glucose 170 mg/dL (70-99) H 09/05/17 02:30 POC Glucose 106 (58-89) H 09/04/17 22:07 Calcium 8.4 mg/dL (8.6-10.8) L 09/05/17 02:30 AST 72 Units/L (5-34) H 09/04/17 17:19 ALT 163 Units/L (0-55) H 09/04/17 17:19 Globulin 3.9 g/dL (2.4-3.5) H 09/04/17 17:19 Albumin/Globulin Ratio 0.9 (1.1-2.2) L 09/04/17 17:19 Ur Specific [place] 1.028 (1.010-1.025) H 09/04/17 23:55 Salicylates < 5.0 mg/dL (15-30) L 09/04/17 17:19 Acetaminophen < 1.0 mcg/mL (10-30) L 09/04/17 17:19 U Benzodiazepines Scrn Positive ng/mL (Mksizp=240) H 09/04/17 23:55 Urine Cocaine Screen Positive ng/mL (Cutoff= 300) H 09/04/17 23:55 - Clinical Findings Intake & Output: Intake & Output 09/04/17 09/05/17 09/05/17 23:59 07:59 15:59 Intake Total 263 / 463 608.2 / 608.2 Output Total 350 / 350 0 / 0 0 / 0 Balance -87 / 113 608.2 / 608.2 0 / 0 Weight 96.4 kg 96.4 kg - Attending Attestation I examined this patient and my medical decision-making was reviewed with the Resident Physician. I agree with the documented findings, disposition and treatment plan as described except to the extent set forth below. We independently had [id number] contact with the patient Patient seen and examined at bedside Labs, radiology, chart personally reviewed. Management was reviewed during multidisciplinary critical care rounds. PAN RECLAIM PROCESSOR: EtOH withdrawl on precedex. electrolytes replaced.Banana Bag Given.. Suicide attempt by strangulation Get CTA head and neck post strangulation. Psych consult. "[place] slipped" Pulm: acceptable o2 sat cont to monitor Cards: No evidence of myocardial ischemia cont to monitor on tele. FEN-GI:NPO for now. Mild transaminitis Hep C positive. Renal: sCr is elevated near baseline IV fluids given. monitor sCr daily ID: Does not appear to have infection at present Heme/Onc: DVT prophylaxis given Endo: Glucose Monitored Integ/MSK: Skin Care per routine ICU Nursing Protocol to prevent ulcers. Lines: All lines examined without evidence of infection : Dispo: Ok for step down CODE: Full
[2017-09-05 09:45] LABS: INR 1.1; Prothrombin Time 11.7 Seconds (9.4-12.1)
[2017-09-05 09:54] LABS: Hepatitis A Antibody IgM Nonreactive (Nonreactive); Hepatitis B Core IgM Nonreactive (Nonreactive)
[2017-09-05 09:55] LABS: Albumin 3.2 g/dL (3.5-5.0); Albumin/Globulin Ratio 0.8 (1.1-2.2); Bilirubin,Direct 0.3 mg/dL (0.0-0.5); Bilirubin,Indirect 0.6 mg/dL (0.0-1.2); Bilirubin,Total 0.9 mg/dL (0.2-1.2); Globulin 3.9 g/dL (2.4-3.5); Total Protein 7.1 g/dL (6.0-8.3)
[2017-09-05 09:58] LABS: Hepatitis B Surface Antigen Reactive (Nonreactive); Hepatitis C Virus Antibody Reactive (Nonreactive)
[2017-09-05] MEDS: Nicotine 21 MG PATCH.TD24 TD SCH (11:56)
[2017-09-05] MEDS: amLODIPine 5 MG TABLET PO SCH (13:28)
[2017-09-05] MEDS ORDERED: Mag Hydrox/Al Hydrox/Simeth 30 ML UDC PO PRN (14:39)
[2017-09-05] MEDS ORDERED: Acetaminophen 325 MG TABLET PO PRN (14:39)
[2017-09-05] MEDS ORDERED: Ondansetron 4 MG/2 ML VIAL IVP PRN (14:39)
[2017-09-05] MEDS ORDERED: *HR* Morphine 2 MG/ML SYRINGE IVP PRN (14:39)
[2017-09-05] MEDS ORDERED: Naloxone 0.4 MG/ML INJ IVP PRN (14:39)
[2017-09-05] MEDS ORDERED: Ipratropium/Albuterol Neb 3 ML IH PRN (14:39)
[2017-09-05] MEDS: *HR* Heparin 5,000 UNIT/ML VIAL SQ SCH (17:36)
[2017-09-05] MEDS ORDERED: Thiamine (B-1) 100 MG, Folic Acid 1 MG, MVI, adult with vitamin K 10 ML in 0.9 % Sodi... IVPB SCH (18:00)
[2017-09-05] MEDS: D5% in 0.45% NACL 1,000 ML IVC SCH ×2 (19:42→20:03)
[2017-09-06] MEDS: *HR* LORazepam 2 MG/ML VIAL IVP PRN ×6 (01:23→14:20)
[2017-09-06] MEDS: D5% in 0.45% NACL 1,000 ML IVC SCH (03:51)
[2017-09-06] MEDS: *HR* Heparin 5,000 UNIT/ML VIAL SQ SCH (06:09)
[2017-09-06 07:02] LABS: Basophils % 0.4 %; Eosinophils # 0.2 K/mcL (0.0-0.6); Eosinophils % 2.9 %; Hematocrit 42.1 % (37.5-50.1); Hemoglobin 14.4 g/dL (12.9-16.9); Immature Granulocytes % 0.1 % (0-4); Lymphocytes # 2.7 K/mcL (0.6-4.6); Lymphocytes % 35.9 %; Mean Corpuscular HGB Conc 34.2 g/dL (31.6-35.5); Mean Corpuscular Hemoglobin 31.7 pg (28.0-33.3); Mean Corpuscular Volume 92.7 fL (83.0-100.0); Mean Platelet Volume 9.9 fL (9.4-12.4); Monocytes # 0.6 K/mcL (0.0-1.3); Monocytes % 7.6 %; Platelet Count 161 K/mcL (140-400); Red Blood Count 4.54 M/mcL (4.19-5.50); Red Cell Distribution Width 12.6 % (11.5-14.5); Segmented Neutrophils % 53.1 %
[2017-09-06 07:07] LABS: INR 1.1; Prothrombin Time 11.8 Seconds (9.4-12.1)
[2017-09-06 07:16] LABS: Alanine Aminotransferase 125 Units/L (0-55); Albumin/Globulin Ratio 0.8 (1.1-2.2); Alkaline Phosphatase 76 Units/L (38-126); Aspartate Amino Transferase 57 Units/L (5-34); BUN/Creatinine Ratio 10 (6-26); Bilirubin,Direct 0.3 mg/dL (0.0-0.5); Bilirubin,Indirect 0.3 mg/dL (0.0-1.2); Bilirubin,Total 0.6 mg/dL (0.2-1.2); Blood Urea Nitrogen 12 mg/dL (8-26); Calcium 8.5 mg/dL (8.6-10.8); Carbon Dioxide 24 mEq/L (19-29); Chloride 111 mEq/L (98-109); Globulin 3.6 g/dL (2.4-3.5); Glucose 121 mg/dL (70-99); Osmolality,Calculated 293 (280-300); Potassium 3.7 mEq/L (3.5-4.5); Sodium 141 mEq/L (136-145); Total Protein 6.6 g/dL (6.0-8.3); eGFR For African Americans > 60 (> 60); eGFR For Non-African Americans > 60 (> 60)
--- NOTE | 2017-09-06 08:56 | Pulmonology Progress Note ---
<Adrien Sidhu - Last Filed: 09/06/17 08:53> Date of Encounter: 09/06/17 Time of Encounter: 08:53 Assessment and Plan (1) Alcohol withdrawal delirium Current Visit: Yes Status: Acute Much improved today. Patient has required 1 dose of Ativan overnight. He remains on the Precedex drip. We are attempting to wean off the Precedex drip. Continue vitamin supplementation. (2) Suicidal behavior Current Visit: Yes Status: Acute Patient attempted suicide while incarcerated by hanging himself. CTA of the head and neck were unremarkable. Psychiatry has been consulted and will evaluate the patient. Qualifiers: Attempted self-injury: with attempted self-injury Qualified Code(s): T14.91XA - Suicide attempt, initial encounter (3) Transaminitis Current Visit: Yes Status: Acute Likely multifactorial in the setting of positive hepatitis C antibody as well as chronic alcohol use. Recommend outpatient follow-up for his hepatitis C. Subjective Principal diagnosis: Alcohol withdrawal Interval history: Patient seen and examined at bedside. Patient is awake and alert at this time. He does not have much recollection of the events leading up to his admission. He does remember that he was in [facility] but does not remember coming to the hospital. He states he drinks 15-18 beers daily. His last drink was prior to his incarceration. He has no complaints at this time. Objective PUL Vital signs: Last Vital Signs Temp 98.1 F 09/06/17 08:00 Pulse 51 09/06/17 07:44 Resp 20 09/06/17 07:44 BP 146/97 09/06/17 07:44 Pulse Ox 96 09/06/17 06:00 General appearance: no acute distress ENT: oropharynx moist Effort: normal Auscultation: bilateral: clear Cardiovascular: other (Regular rhythm, bradycardia) Gastrointestinal: normoactive bowel sounds, soft, non-tender, non-distended Extremities: no cyanosis, no edema, no clubbing normal mental status, non-focal exam Results - Laboratory Findings CBC and BMP: 09/06/17 06:51 09/06/17 06:51 PT/INR, D-dimer PT 11.8 Seconds (9.4-12.1) 09/06/17 06:51 Abnormal lab findings: Abnormal lab results Chloride 111 mEq/L (98-109) H 09/06/17 06:51 Glucose 121 mg/dL (70-99) H 09/06/17 06:51 POC Glucose 106 (58-89) H 09/04/17 22:07 Calcium 8.5 mg/dL (8.6-10.8) L 09/06/17 06:51 AST 57 Units/L (5-34) H 09/06/17 06:51 ALT 125 Units/L (0-55) H 09/06/17 06:51 Albumin 3.0 g/dL (3.5-5.0) L 09/06/17 06:51 Globulin 3.6 g/dL (2.4-3.5) H 09/06/17 06:51 Albumin/Globulin Ratio 0.8 (1.1-2.2) L 09/06/17 06:51 Ur Specific [place] 1.028 (1.010-1.025) H 09/04/17 23:55 Salicylates < 5.0 mg/dL (15-30) L 09/04/17 17:19 Acetaminophen < 1.0 mcg/mL (10-30) L 09/04/17 17:19 U Benzodiazepines Scrn Positive ng/mL (Horivx=027) H 09/04/17 23:55 Urine Cocaine Screen Positive ng/mL (Cutoff= 300) H 09/04/17 23:55 Hep Bs Antigen Reactive (Nonreactive) H 09/05/17 02:30 Hepatitis C Ab Screen Reactive (Nonreactive) H 09/05/17 02:30 - Clinical Findings Intake & Output: Intake & Output 09/05/17 09/06/17 09/06/17 23:59 07:59 15:59 Intake Total 100 / 100 1267 / 1267 Output Total 1000 / 1000 0 / 0 Balance -900 / -900 1267 / 1267 Consult Discharge Plan - Plan Referrals: NONE,PCP [Primary Care Provider] - <Fernando Jarvis W - Last Filed: 09/06/17 12:48> Date of Encounter: 09/06/17 Objective PUL Vital signs: Last Vital Signs Temp 97.6 F 09/06/17 10:49 Pulse 58 09/06/17 08:00 Resp 20 09/06/17 07:44 BP 146/97 09/06/17 07:44 Pulse Ox 96 09/06/17 06:00 Results - Laboratory Findings CBC and BMP: 09/06/17 06:51 09/06/17 06:51 PT/INR, D-dimer PT 11.8 Seconds (9.4-12.1) 09/06/17 06:51 Abnormal lab findings: Abnormal lab results Chloride 111 mEq/L (98-109) H 09/06/17 06:51 Glucose 121 mg/dL (70-99) H 09/06/17 06:51 POC Glucose 106 (58-89) H 09/04/17 22:07 Calcium 8.5 mg/dL (8.6-10.8) L 09/06/17 06:51 AST 57 Units/L (5-34) H 09/06/17 06:51 ALT 125 Units/L (0-55) H 09/06/17 06:51 Albumin 3.0 g/dL (3.5-5.0) L 09/06/17 06:51 Globulin 3.6 g/dL (2.4-3.5) H 09/06/17 06:51 Albumin/Globulin Ratio 0.8 (1.1-2.2) L 09/06/17 06:51 Ur Specific [place] 1.028 (1.010-1.025) H 09/04/17 23:55 Salicylates < 5.0 mg/dL (15-30) L 09/04/17 17:19 Acetaminophen < 1.0 mcg/mL (10-30) L 09/04/17 17:19 U Benzodiazepines Scrn Positive ng/mL (Xubxkx=659) H 09/04/17 23:55 Urine Cocaine Screen Positive ng/mL (Cutoff= 300) H 09/04/17 23:55 Hep Bs Antigen Reactive (Nonreactive) H 09/05/17 02:30 Hepatitis C Ab Screen Reactive (Nonreactive) H 09/05/17 02:30 - Clinical Findings Intake & Output: Intake & Output 09/05/17 09/06/17 09/06/17 23:59 07:59 15:59 Intake Total 100 / 100 1267 / 1267 50 / 50 Output Total 1000 / 1000 0 / 0 900 / 900 Balance -900 / -900 1267 / 1267 -850 / -850 - Attending Attestation I examined this patient and my medical decision-making was reviewed with the Resident Physician. I agree with the documented findings, disposition and treatment plan as described except to the extent set forth below. We independently had [id number] contact with the patient Patient seen and examined at bedside Labs, radiology, chart personally reviewed. Management was reviewed during multidisciplinary critical care rounds. 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 This is possibly a suicide attempt psychiatry's been consulted sitter and suicide precautions have been instituted Pulm: History of tobacco abuse oxygenation acceptable today nicotine replacement Cards: No acute issues continue to monitor FEN-GI: Had status tolerated Renal: Urine output acceptable continue to monitor ID: No acute infectious issues Heme/Onc: Endo: Glucose Monitored Integ/MSK: Skin Care per routine ICU Nursing Protocol to prevent ulcers. Lines: All lines examined without evidence of infection : Dispo: Telemetry for ongoing care CODE: Full
[2017-09-06] MEDS ORDERED: Nicotine 21 MG PATCH.TD24 TD SCH (09:00)
[2017-09-06] MEDS ORDERED: Thiamine (B-1) 100 MG, Folic Acid 1 MG, MVI, adult with vitamin K 10 ML in 0.9 % Sodi... IVPB SCH (09:00)
[2017-09-06] MEDS ORDERED: amLODIPine 5 MG TABLET PO SCH (09:00)
[2017-09-06 14:15] VITALS: BP 169/106
--- NOTE | 2017-09-06 14:46 | Consult Note ---
Date of Encounter: 09/06/17 Time of Encounter: 14:38 Assessment & Recommendation (1) Suicidal behavior Current visit: Yes Status: Acute Assessment & Recommendation: Does not remember suicide attempt due to actively withdrawing from alcohol. Actively hallucinating at the time. Client is still withdrawing but his thinking is now clear. Denies any current or past suicidal ideation, plan, or attempt. Denies any active mental health symptoms or history of mental health symptoms. Aware he has a problem with alcohol and wants treatment. He already has a place in mind for treatment and has taken steps toward getting treatment there in the past. Does not meet pink slip criteria at this time. Would recommend he continue to receive management for ongoing withdrawal symptoms and when discharged that he be given resources for multiple places he can follow up for substance abuse treatment. Qualifiers: Attempted self-injury: with attempted self-injury Qualified Code(s): T14.91XA - Suicide attempt, initial encounter History of Present Illness Requesting Physician: Dario Cuba Reason for consult: suicide attempt History of present illness: Mr. Vale is a 47 year old male who was transferred from intermediate in acute alcohol withdrawal. Had tied a sheet around his neck while in a holding cell. Attempted to see client yesterday but he was sedated from the high doses of benzoes needed to help manage his acute withdrawal. Today he is alert and oriented. Pleasant. Does not remember much of his time in the intermediate. Does remember hallucinating snakes. Does not understand why he tied a sheet around his neck. Remembers being scared of visual hallucinations but does not remember any thoughts of self harm. Denies any history of SI or suicide attempts. Denies any current ideation, plan,or intent. Denies having any mental health history. Denies ever speaking to a psychiatrist before. Knows he has a problem with alcohol. Attempted treatment in the past but did not follow through due to transportation issues. Wants to try again. States the program he is interested in is on [facility] and that they do both inpatient and outpatient rehab. Denies any other drug use since the s. Denies having any physical health problems other than those related to alcohol dependence. Wants to leave hospital. Discussed that he is still in active withdrawal and it is advised that he remain in treatment. Client reports he will need to return to intermediate and that his PO is giving him another chance provided he does his time. Discussed how withdrawal is not likely to be managed in intermediate in a safe fashion and that he should finish his treatment in the medical hospital first. CC: Dario Cuba Past Med Surg Social Fam HX - Past Medical History Medical history: hypertension - Past Psychiatric History Psychiatric history: Reports: no psych history - Past Surgical History Surgical History: other - Social History Smoking Status: Current every day smoker Smokeless Tobacco Status: No Alcohol use: unknown Drug use: none, cocaine, opiates, IV Drug Use, prescription drug abuse - Family History Mother Hx Family Endocrine Disorder: Yes (DM) Medications & Allergies No Known Home Drugs 09/05/17 [History] 3 Allergy/AdvReac Type Severity Reaction Status Date / Time No Known Allergies Allergy Verified 09/05/17 10:14 Review of Systems Constitutional: Denies: fever, chills, weakness, weight change Eyes: Denies: eye pain, vision change Ears, Nose, Throat: Denies: ear pain, throat pain, dental pain, hearing loss, congestion Cardiovascular: Denies: chest pain, palpitations, dyspnea on exertion Respiratory: Denies: cough, dyspnea, wheezes Gastrointestinal: Denies: abdominal pain, nausea, vomiting, diarrhea, constipation Genitourinary male: Denies: urgency, dysuria, frequency, genital lesions Genitourinary female: Denies: urgency, dysuria, frequency, abnormal menses, dyspareunia Musculoskeletal: Denies: joint swelling, joint pain Integumentary: Denies: rash, lesions, pruritus Neurological: Reports: memory loss Endocrine: Denies: fatigue, heat or cold intolerance Hematologic/Lymphatic: Denies: easy bruising, lymphadenopathy Allergic/Immunologic: Denies: urticaria, itchy eyes Mental Status Exam Patient orientation: Yes Person, Yes Time, Yes Place Level of alertness: Alert Patient appearance: Appropriate Behavior: calm, cooperative Psychomotor activity: Increased Eye contact: Maintains Eye Contact Mood description: Euthymic/stable Affect description: congruent with mood, full range Speech pattern: Normal rate, Normal rhythm, Normal tone Speech volume: Normal Thought process: Linear, Goal Oriented Thought content: No Suicidal ideation, No Homicidal ideation, No Overt delusions Perceptual disturbances: No Auditory hallucinations, No Visual hallucinations Attention span: Capable of Focused Attention Memory description: Immediate Intact, Recent Impaired, Remote Intact Patient reliability: Reliable Historian Intelligence estimate: Average Judgment: Limited Insight: Partial Results - Vital Signs Vital signs: Temp Pulse Resp BP Pulse Ox 97.6 F 70 16 169/106 99 09/06/17 10:49 09/06/17 14:00 09/06/17 14:00 09/06/17 14:00 09/06/17 14:00 - Labs Labs: Laboratory Last Values WBC 7.5 K/mcL (4.3-11.1) 09/06/17 06:51 RBC 4.54 M/mcL (4.19-5.50) 09/06/17 06:51 Hgb 14.4 g/dL (12.9-16.9) 09/06/17 06:51 Hct 42.1 % (37.5-50.1) 09/06/17 06:51 MCV 92.7 fL (83.0-100.0) 09/06/17 06:51 MCH 31.7 pg (28.0-33.3) 09/06/17 06:51 MCHC 34.2 g/dL (31.6-35.5) 09/06/17 06:51 RDW 12.6 % (11.5-14.5) 09/06/17 06:51 Plt Count 161 K/mcL (140-400) 09/06/17 06:51 MPV 9.9 fL (9.4-12.4) 09/06/17 06:51 Immature Gran % 0.1 % (0-4) 09/06/17 06:51 Seg Neutrophils % 53.1 % 09/06/17 06:51 Lymphocytes % 35.9 % 09/06/17 06:51 Monocytes % 7.6 % 09/06/17 06:51 Eosinophils % 2.9 % 09/06/17 06:51 Basophils % 0.4 % 09/06/17 06:51 Neutrophils # 4.0 K/mcL (1.6-8.9) 09/06/17 06:51 Lymphocytes # 2.7 K/mcL (0.6-4.6) 09/06/17 06:51 Monocytes # 0.6 K/mcL (0.0-1.3) 09/06/17 06:51 Eosinophils # 0.2 K/mcL (0.0-0.6) 09/06/17 06:51 Basophils # 0.0 K/mcL (0.0-0.2) 09/06/17 06:51 PT 11.8 Seconds (9.4-12.1) 09/06/17 06:51 INR 1.1 09/06/17 06:51 Sodium 141 mEq/L (136-145) 09/06/17 06:51 Potassium 3.7 mEq/L (3.5-4.5) 09/06/17 06:51 Chloride 111 mEq/L (98-109) H 09/06/17 06:51 Carbon Dioxide 24 mEq/L (19-29) 09/06/17 06:51 BUN 12 mg/dL (8-26) 09/06/17 06:51 Creatinine 1.18 mg/dL (0.72-1.25) 09/06/17 06:51 Est GFR ( Amer) > 60 (> 60) 09/06/17 06:51 Est GFR (Non-Af Amer) > 60 (> 60) 09/06/17 06:51 BUN/Creatinine Ratio 10 (6-26) 09/06/17 06:51 Glucose 121 mg/dL (70-99) H 09/06/17 06:51 POC Glucose 106 (58-89) H 09/04/17 22:07 Calculated Osmolality 293 (280-300) 09/06/17 06:51 Calcium 8.5 mg/dL (8.6-10.8) L 09/06/17 06:51 Magnesium 2.1 mg/dL (1.6-2.6) 09/05/17 02:30 Total Bilirubin 0.6 mg/dL (0.2-1.2) 09/06/17 06:51 Direct Bilirubin 0.3 mg/dL (0.0-0.5) 09/06/17 06:51 Indirect Bilirubin 0.3 mg/dL (0.0-1.2) 09/06/17 06:51 AST 57 Units/L (5-34) H 09/06/17 06:51 ALT 125 Units/L (0-55) H 09/06/17 06:51 Alkaline Phosphatase 76 Units/L (38-126) 09/06/17 06:51 Troponin I 0.00 ng/mL (0-0.03) 09/04/17 17:19 Serum Total Protein 6.6 g/dL (6.0-8.3) 09/06/17 06:51 Albumin 3.0 g/dL (3.5-5.0) L 09/06/17 06:51 Globulin 3.6 g/dL (2.4-3.5) H 09/06/17 06:51 Albumin/Globulin Ratio 0.8 (1.1-2.2) L 09/06/17 06:51 Urine Color Yellow (Yellow) 09/04/17 23:55 Urine Clarity Clear (Clear) 09/04/17 23:55 Urine pH 7.0 pH Units (5.0-8.0) 09/04/17 23:55 Ur Specific [place] 1.028 (1.010-1.025) H 09/04/17 23:55 Urine Protein Negative mg/dL (Neg-Trace) 09/04/17 23:55 Urine Glucose (UA) Normal mg/dL (Normal) 09/04/17 23:55 Urine Ketones Negative mg/dL (Negative) 09/04/17 23:55 Urine Blood Negative (Negative) 09/04/17 23:55 Urine Nitrite Negative (Negative) 09/04/17 23:55 Urine Bilirubin Negative (Negative) 09/04/17 23:55 Urine Urobilinogen Normal mg/dL (Normal) 09/04/17 23:55 Ur Leukocyte Esterase Negative (Negative) 09/04/17 23:55 Ur Culture Indicated? NO (NO) 09/04/17 23:55 Salicylates < 5.0 mg/dL (15-30) L 09/04/17 17:19 Urine Opiates Screen Negative ng/mL (Vrdwsj=304) 09/04/17 23:55 Acetaminophen < 1.0 mcg/mL (10-30) L 09/04/17 17:19 Ur Barbiturates Screen Negative ng/mL (Mixjwt=033) 09/04/17 23:55 Ur Phencyclidine Scrn Negative ng/mL (Cutoff=25) 09/04/17 23:55 Ur Amphetamines Screen Negative ng/mL (Dljzdk=3257) 09/04/17 23:55 U Benzodiazepines Scrn Positive ng/mL (Bccaxw=059) H 09/04/17 23:55 Urine Cocaine Screen Positive ng/mL (Cutoff= 300) H 09/04/17 23:55 U Marijuana (THC) Screen Negative ng/mL (Cutoff = 50) 09/04/17 23:55 Ethyl Alcohol < 10 mg/dL (0-10) 09/04/17 17:19 Hepatitis A IgM Ab Nonreactive (Nonreactive) 09/05/17 02:30 Hep Bs Antigen Reactive (Nonreactive) H 09/05/17 02:30 Hep B Core IgM Ab Nonreactive (Nonreactive) 09/05/17 02:30 Hepatitis C Ab Screen Reactive (Nonreactive) H 09/05/17 02:30 Consult Discharge Plan - Plan Referrals: NONE,PCP [Primary Care Provider] -
--- NOTE | 2017-09-06 15:17 | Event Note ---
Date of Encounter: 09/06/17 Time of Encounter: 15:15 The patient had been cleared from psychiatry as a risk to himself with regards to suicidal ideation or self-harm. The "pink slip" has been lifted per psychiatric evaluation today (i had [id number] conversation with the attending psychiatrist Dr. Lang) the patient subsequently has requested to leave the hospital AGAINST MEDICAL ADVICE. I explained that with ongoing alcohol withdrawal possibility of further neurological decline and confusion agitation seizures and for possible patient expressed understanding and decided to leave despite this.
--- NOTE | 2017-09-06 21:44 | Electrocardiograph Report ---
[address] [place], [place] [address] Test Date: 2017-09-04 Pat Name: Jamaal Vale Department: 103 Room: 10 Gender: M Mission Coordinator: : 1970 Requested By: Nehemias Mora Order Number: [id number] Reading MD: Carlos Keenan MD Measurements Intervals [place] Rate: 68 P: 35 ID: [id number] QRS: -19 QRSD: 118 T: 58 QT: 402 QTc: 418 Interpretive Statements SINUS RHYTHM Electronically Signed On 09-06-2017 21:43:21 EST by Carlos Keenan MD
--- NOTE | 2017-09-07 16:37 | Discharge Summary ---
Date of Encounter: 09/06/17 Time of Encounter: 15:00 - Discharge Diagnosis (1) Alcohol withdrawal delirium Priority: Primary Status: Resolved (2) Suicidal behavior Priority: Primary Status: Resolved Qualifiers: Attempted self-injury: with attempted self-injury Qualified Code(s): T14.91XA - Suicide attempt, initial encounter (3) Transaminitis Priority: Primary Status: Acute - Discharge Medications Home Medications: No Known Home Drugs 09/05/17 [History] Allergies/Adverse Reactions: 3 Allergy/AdvReac Type Severity Reaction Status Date / Time No Known Allergies Allergy Verified 09/05/17 10:14 Labs on day of discharge: Labs from last 24 hours 09/05/17 02:30 Hep Bs Ag Confirmation POSITIVE A - Impressions ITS Impressions Angiography CT 09/05/17 11:00 IMPRESSION: 1. No acute intracranial abnormality. 2. Unremarkable CTA of the head. D/ / Chemo Nicole / Chemo Nicole Interpreting Provider: Chemo Nicole Neck CTA 09/05/17 11:00 IMPRESSION: Unremarkable CTA of the neck. D/ / Chemo Nicole / Chemo Nicole Interpreting Provider: Chemo Nicole Date of admission: 09/04/17 22:21 Primary care physician: PCP YESCIA Discharging clinician: Adrien Sidhu Anticipated date of discharge: 09/06/17 - Patient Status Disposition: Left Against Medical Advice Condition: Fair Overall status at discharge: patient is progressing back to baseline - Discharge Instructions Follow Up With: NONE,PCP [Primary Care Provider] - - Hospital Course Hospital course: Mr. Vale is a 47 year old male with history of alcoholism presented from alf after a suicide attempt and episodes of agitation and hallucination. Patient has a history of significant alcohol use and was incarcerated for 48 hours before experiencing withdrawal symptoms. The patient was admitted and placed on Ativan and Precedex to treat his acute withdrawal symptoms. Patient had a CT of the head and neck to evaluate his anatomy after attempted pain. Once the patient's withdrawal symptoms subsided he was evaluated by psychiatry who did not feel that he was suicidal and appropriate for inpatient admission. He recommended that the patient remain in the hospital for further treatment of his medical conditions including alcoholism however he refused and signed out AGAINST MEDICAL ADVICE. The risks and benefits were explained to the patient and he verbalized understanding. - Time Spent with Patient Total time spent providing and/or coordinating discharge services:
[2017-09-08] MEDS ORDERED: Vitamin B Complex/Vit C/Vit E 1 EACH TABLET PO SCH (09:00)
[2017-09-08] MEDS ORDERED: Folic Acid 1 MG TABLET PO SCH (09:00)
[2017-09-08] MEDS ORDERED: Thiamine (B-1) 100 MG TABLET PO SCH (09:00)
== END 2017-09-06 15:15 | disposition left against medical advice (07) | DRG 770 ==
LOC: 3BNU 17:03 → EMEROO 17:03 → 3BNU 19:06 → ICNU 22:20
PROVIDERS: ADMIT Hospitalist; ATTEND Internal Medicine

== ENCOUNTER 2017-09-11 09:30 | Inpatient (IN) ==
[2017-09-11] MEDS ORDERED: Thiamine (B-1) 100 MG, Folic Acid 1 MG, MVI, adult with vitamin K 10 ML in 0.9 % Sodi... IVPB ONE (09:58)
[2017-09-11] MEDS ORDERED: *HR* LORazepam 2 MG/ML VIAL IVP ONE ×2 (09:59→11:05)
[2017-09-11] MEDS ORDERED: 0.9 % Sodium Chloride 1,000 ML IVC ONE (10:00)
[2017-09-11 10:09] LABS: Basophils % 0.4 %; Eosinophils # 0.2 K/mcL (0.0-0.6); Eosinophils % 3.3 %; Hematocrit 43.2 % (37.5-50.1); Hemoglobin 14.4 g/dL (12.9-16.9); Immature Granulocytes % 0.2 % (0-4); Lymphocytes # 1.5 K/mcL (0.6-4.6); Lymphocytes % 28.4 %; Mean Corpuscular HGB Conc 33.3 g/dL (31.6-35.5); Mean Corpuscular Hemoglobin 31.7 pg (28.0-33.3); Mean Corpuscular Volume 95.2 fL (83.0-100.0); Mean Platelet Volume 10.2 fL (9.4-12.4); Monocytes # 0.7 K/mcL (0.0-1.3); Monocytes % 13.1 %; Platelet Count 177 K/mcL (140-400); Red Blood Count 4.54 M/mcL (4.19-5.50); Segmented Neutrophils % 54.6 %
[2017-09-11 10:24] LABS: Bilirubin,Urine Negative (Negative); Blood,Urine Negative (Negative); Clarity,Urine Clear (Clear); Color,Urine Yellow (Yellow); Glucose,Urine (UA) Normal (Normal); Ketones,Urine Negative (Negative); Leukocyte Esterase,Urine Negative (Negative); Nitrite,Urine Negative (Negative); PH,Urine 7.5 pH Units (5.0-8.0); Protein,Urine Negative (Neg-Trace); Specific Gravity,Urine 1.011 (1.010-1.025); Urobilinogen,Urine Normal (Normal)
[2017-09-11 10:26] LABS: Blood Urea Nitrogen 10 mg/dL (8-26); Calcium 8.5 mg/dL (8.6-10.8); Carbon Dioxide 29 mEq/L (19-29); Chloride 110 mEq/L (98-109); Glucose 94 mg/dL (70-99); Magnesium 2.3 mg/dL (1.6-2.6); Osmolality,Calculated 293 (280-300); Potassium 4.3 mEq/L (3.5-4.5); Sodium 142 mEq/L (136-145)
--- NOTE | 2017-09-11 10:26 | Emergency Department Note ---
Disposition Clinical Impression: Transaminitis, Polysubstance abuse, Chronic alcohol dependence, continuous, Anxiety Alcohol withdrawal syndrome Qualifiers: Complication of substance-induced condition: with unspecified complication Qualified Code(s): F10.239 - Alcohol dependence with withdrawal, unspecified Hepatitis B Qualifiers: Viral hepatitis chronicity: unspecified Hepatic coma status: without hepatic coma Hepatitis delta agent presence: without delta-agent Qualified Code(s): B19.10 - Unspecified viral hepatitis B without hepatic coma Chest pain Qualifiers: Chest pain type: unspecified Qualified Code(s): R07.9 - Chest pain, unspecified Disposition: Home, Self-Care Condition: Fair Time of Disposition: 11:46 General Adult HPI - General Chief complaint: ED Alcohol Abuse Stated complaint: ETOH withdrawal Time Seen by Provider: 09/11/17 09:32 Source: patient, EMS Mode of arrival: ambulatory Limitations: no limitations Nursing Notes Reviewed: Yes Vital Signs Reviewed: Yes - History of Present Illness HPI Narrative: 47-year-old male presented to the ED complaining of possible alcohol withdrawal. Patient states he has been a chronic alcoholic for many years he was seen here approximately 5 days ago for the same symptoms where he was in [facility] for [facility] hours had one suicidal ideation where he was found with a rope around his neck. He was also having hallucinations at this time. He was admitted to the hospitalist service but he left 2 days later and february as patient states he just wanted to drink. Patient states that he has been drinking for the last few days. He does admit to using cocaine approximately 3 days ago. He states he normally drinks 1 pint of liquor and 18 beers per day. He states his last drink was approximately 1800 yesterday. Which was about of liquor. Patient states he has fallen a few times was as he did not hit his head or lose consciousness ever. He is not complaining of any suicidal ideations or homicidal ideations at this time. He states that a little bit of chest pain on the left side that comes and goes. He is complaining of a headache and also blurry vision. Complaining abdominal pain, changes in bowel movements or pain with urination or pain or tingling or weakness going down the arms or legs. Patient saw having any hallucinations at this time. Patient states he does not feel he is confused. Patient has no other complaints Pain Scale: 3 - Related Data Home Medications Medication Instructions Recorded Confirmed No Known Home Drugs 09/05/17 09/11/17 Allergies Allergy/AdvReac Type Severity Reaction Status Date / Time No Known Allergies Allergy Verified 09/05/17 10:14 Review of Systems: 10 point review of systems done and negative unless otherwise stated in history of present illness. All systems ED: reviewed and negative except as stated. Review of Systems: As Per HPI Past Medical History - Past Medical History Attestation: Yes The following information was validated with the patient. Medical history: Reports: hypertension Surgical history: Reports: other Psychiatric history: Reports: no psych history - Social History Smoking Status: Current every day smoker Smokeless Tobacco Status: No Alcohol use: Reports: heavy, recent Drug use: Reports: cocaine, prescription drug abuse Physical Exam - General Limitations: no limitations General appearance: alert, anxious - Head Head exam: atraumatic, normocephalic, normal inspection - Eye Eye exam: Present: normal appearance, PERRL, EOMI - ENT ENT exam: normal exam, normal oropharynx, mucous membranes moist - Neck Neck exam: Present: normal inspection, full ROM, trachea midline - Chest Chest inspection: Present: normal inspection, symmetric chest wall rise - Cardiovascular Cardiovascular exam: Present: regular rate, normal rhythm, normal heart sounds - Abdominal Exam Abdominal exam: Present: soft, Non-Tender. Absent: tenderness, distention, guarding, rebound, rigidity - Extremities Exam Extremities exam: Present: normal inspection, full ROM. Absent: tenderness, pedal edema - Back Exam Back exam: Present: normal inspection, full ROM. Absent: tenderness, CVA tenderness (R), CVA tenderness (L) - Expanded Neurological Exam Patient oriented to: Present: person, place, time Speech: Present: fluid speech Cranial nerves: EOM function (II, III, IV, ): Normal (Rightward gaze horizontal nystagmus), facial sensation (V): Normal, facial palsy (VII): Normal , spinal accessory function (XI): Normal, tongue deviation (XII): Normal Cerebellar function: finger to nose: Normal Cerebellar function: normal gait Motor strength - LUE: 5/5 Motor strength - RUE: 5/5 Motor strength - LLE: 5/5 Motor strength - RLE: 5/5 Upper motor neuron exam: pronator drift: Absent bilaterally Sensory exam upper extremity: light touch: Normal Sensory exam lower extremity: light touch: Normal Coma Scale Eye Opening: Spontaneous Coma Scale Motor Response: Obeys Commands Coma Scale Verbal Response: Oriented Coma Scale Total: 15 - Skin Skin exam: Present: warm, dry, intact, normal color Course Course Narrative: 47-year-old male presents to the ED for alcohol withdrawal who has a history of hepatitis B patient states he wants to stop drinking alcohol was worried about the withdrawal symptoms. We will give him half milligram of Ativan as well as a banana bag the IV. We will get CBC, CMP, urine drug screen, magnesium, chest x-ray, EKG, CT head without contrast. Patient's okay with this plan. - Consultations Consultation #1: Spoke with [facility] about patient for a liver transplant day stay because he is an active drinker they will not take him. Time: 11:40 Consultation #2: Spoke with the hospitalist Dr. Coffey who agreed to accept the patient to their service. Time: 11:47 Vital Signs Temperature 98 F 09/11/17 09:31 Pulse Rate 68 09/11/17 09:31 Respiratory Rate 20 09/11/17 09:31 Blood Pressure 185/121 09/11/17 09:31 O2 Sat by Pulse Oximetry 99 09/11/17 09:31 Temperature 98.0 F 09/11/17 16:13 Pulse Rate 68 09/11/17 16:13 Respiratory Rate 17 09/11/17 16:13 Blood Pressure 148/95 09/11/17 16:13 O2 Sat by Pulse Oximetry 97 09/11/17 16:13 Oxygen Delivery Oxygen Delivery Room Air Medical Decision Making - [facility] Narrative Medical decision making narrative: 47-year-old male presents to the ED for alcohol withdrawal symptoms. Patient was recently admitted here to the emergency department and to the ICU for similar symptoms approximately 4 days ago. He left AMA as he stated he did not want to be there and wanted to continue drinking. He went home [place] used cocaine for 3 days ago and continued to drink his normal amount and says that now he wants to quit drinking and he has done with that. I long conversation patient states that he does want to stay and get further help. Patient is not currently having any hallucinationsor suicidal ideations or homicidal ideations. Patient states he was shaking but he is worried that he is going to withdrawal. Patient last drank approximately at 1800 yesterday. He has not drink anything since. He was complaining of chest pain medicines gone away. We did basic workup including head CT due to falls which came back negative as well as chest x-ray and EKG. EKG just showed early repolarization no other acute changes. Patient was positive for cocaine in his urine. Patient did have elevated transaminases that were more elevated than his last visit 4 days ago he has a higher ALTs in AST and a GGT that is not increasing. Most likely patient needs a liver transplant due to his hepatitis B. We gave patient 2 doses of a half milligram of Ativan which did help with his symptoms we also gave him a banana bag which also helped. I called [facility] and they stated they will not take the patient for liver transplant as he is still actively drinking. I then spoke with the hospitalist who agreed to accept the patient. Patient is admitted to the hospitalist stable condition. - Medical Records Medical records reviewed: Yes I reviewed the patient's medical records. - Lab Data Lab results reviewed: Yes I reviewed the patient's lab results. Result diagrams: 09/11/17 09:41 09/11/17 09:41 Lab Results 09/11/17 09/11/17 09/11/17 Range/Units 09:36 09:41 09:41 WBC 5.4 (4.3-11.1) K/mcL RBC 4.54 (4.19-5.50) M/mcL Hgb 14.4 (12.9-16.9) g/dL Hct 43.2 (37.5-50.1) % MCV 95.2 (83.0-100.0) fL MCH 31.7 (28.0-33.3) pg MCHC 33.3 (31.6-35.5) g/dL RDW 13.0 (11.5-14.5) % Plt Count 177 (140-400) K/mcL MPV 10.2 (9.4-12.4) fL Immature Gran % 0.2 (0-4) % Seg Neutrophils % 54.6 % Lymphocytes % 28.4 % Monocytes % 13.1 % Eosinophils % 3.3 % Basophils % 0.4 % Neutrophils # 3.0 (1.6-8.9) K/mcL Lymphocytes # 1.5 (0.6-4.6) K/mcL Monocytes # 0.7 (0.0-1.3) K/mcL Eosinophils # 0.2 (0.0-0.6) K/mcL Basophils # 0.0 (0.0-0.2) K/mcL Sodium 142 (136-145) mEq/L Potassium 4.3 (3.5-4.5) mEq/L Chloride 110 H (98-109) mEq/L Carbon Dioxide 29 (19-29) mEq/L BUN 10 (8-26) mg/dL Creatinine 0.97 (0.72-1.25) mg/dL Est GFR ( Amer) > 60 (> 60) Est GFR (Non-Af Amer) > 60 (> 60) BUN/Creatinine Ratio 10 (6-26) Glucose 94 (70-99) mg/dL POC Glucose 95 H (58-89) Calculated Osmolality 293 (280-300) Calcium 8.5 L (8.6-10.8) mg/dL Magnesium 2.3 (1.6-2.6) mg/dL Total Bilirubin < 0.2 L (0.2-1.2) mg/dL GGT 54 (12-64) Units/L AST 116 H (5-34) Units/L ALT 187 H (0-55) Units/L Alkaline Phosphatase 148 H (38-126) Units/L Troponin I (0-0.03) ng/mL Serum Total Protein 7.0 (6.0-8.3) g/dL Albumin 3.3 L (3.5-5.0) g/dL Globulin 3.7 H (2.4-3.5) g/dL Albumin/Globulin Ratio 0.9 L (1.1-2.2) Amylase 44 (25-125) Units/L Lipase 50 (8-78) Units/L TSH 0.123 L (0.350-4.840) mcIU/mL Urine Color (Yellow) Urine Clarity (Clear) Urine pH (5.0-8.0) pH Units Ur Specific Linn (1.010-1.025) Urine Protein (Neg-Trace) mg/dL Urine Glucose (UA) (Normal) mg/dL Urine Ketones (Negative) mg/dL Urine Blood (Negative) Urine Nitrite (Negative) Urine Bilirubin (Negative) Urine Urobilinogen (Normal) mg/dL Ur Leukocyte Esterase (Negative) Urine Opiates Screen (Ydpysu=285) ng/mL Ur Barbiturates Screen (Ekxzyv=738) ng/mL Ur Phencyclidine Scrn (Cutoff=25) ng/mL Ur Amphetamines Screen (Otcnon=1281) ng/mL U Benzodiazepines Scrn (Wueptg=497) ng/mL Urine Cocaine Screen (Cutoff= 300) ng/mL U Marijuana (THC) Screen (Cutoff = 50) ng/mL Ethyl Alcohol < 10 (0-10) mg/dL 09/11/17 09/11/17 09/11/17 Range/Units 09:41 10:11 10:11 WBC (4.3-11.1) K/mcL RBC (4.19-5.50) M/mcL Hgb (12.9-16.9) g/dL Hct (37.5-50.1) % MCV (83.0-100.0) fL MCH (28.0-33.3) pg MCHC (31.6-35.5) g/dL RDW (11.5-14.5) % Plt Count (140-400) K/mcL MPV (9.4-12.4) fL Immature Gran % (0-4) % Seg Neutrophils % % Lymphocytes % % Monocytes % % Eosinophils % % Basophils % % Neutrophils # (1.6-8.9) K/mcL Lymphocytes # (0.6-4.6) K/mcL Monocytes # (0.0-1.3) K/mcL Eosinophils # (0.0-0.6) K/mcL Basophils # (0.0-0.2) K/mcL Sodium (136-145) mEq/L Potassium (3.5-4.5) mEq/L Chloride (98-109) mEq/L Carbon Dioxide (19-29) mEq/L BUN (8-26) mg/dL Creatinine (0.72-1.25) mg/dL Est GFR ( Amer) (> 60) Est GFR (Non-Af Amer) (> 60) BUN/Creatinine Ratio (6-26) Glucose (70-99) mg/dL POC Glucose (58-89) Calculated Osmolality (280-300) Calcium (8.6-10.8) mg/dL Magnesium (1.6-2.6) mg/dL Total Bilirubin (0.2-1.2) mg/dL GGT (12-64) Units/L AST (5-34) Units/L ALT (0-55) Units/L Alkaline Phosphatase (38-126) Units/L Troponin I 0.01 (0-0.03) ng/mL Serum Total Protein (6.0-8.3) g/dL Albumin (3.5-5.0) g/dL Globulin (2.4-3.5) g/dL Albumin/Globulin Ratio (1.1-2.2) Amylase (25-125) Units/L Lipase (8-78) Units/L TSH (0.350-4.840) mcIU/mL Urine Color Yellow (Yellow) Urine Clarity Clear (Clear) Urine pH 7.5 (5.0-8.0) pH Units Ur Specific Linn 1.011 (1.010-1.025) Urine Protein Negative (Neg-Trace) mg/dL Urine Glucose (UA) Normal (Normal) mg/dL Urine Ketones Negative (Negative) mg/dL Urine Blood Negative (Negative) Urine Nitrite Negative (Negative) Urine Bilirubin Negative (Negative) Urine Urobilinogen Normal (Normal) mg/dL Ur Leukocyte Esterase Negative (Negative) Urine Opiates Screen Negative (Xpzaxj=289) ng/mL Ur Barbiturates Screen Negative (Mfvmku=032) ng/mL Ur Phencyclidine Scrn Negative (Cutoff=25) ng/mL Ur Amphetamines Screen Negative (Ttpiiw=7389) ng/mL U Benzodiazepines Scrn Positive H (Cdytxx=679) ng/mL Urine Cocaine Screen Positive H (Cutoff= 300) ng/mL U Marijuana (THC) Screen Negative (Cutoff = 50) ng/mL Ethyl Alcohol (0-10) mg/dL - Radiology Data Radiology results reviewed: Yes I reviewed the patient's radiology results. - EKG Data EKG #1 EKG attestation: Yes I reviewed and interpreted this EKG. EKG results narrative: EKG done at 1007 myself and attending shows normal sinus rhythm at a rate of 66 , MA interval 203, QRS 121, QTC 423 with a leftward axis. Patient does have signs of early repolarization or no other acute ST changes. No other acute T- wave changes. No signs of heart strain or hypertrophy or any heart block. Compared with old EKG done 09/04/17 shows normal sinus rhythm with no acute changes. Attestation Statement - Attestation Attestation: I examined this patient and my medical decision-making was reviewed with the Resident Physician, Dr. Castaneda. I agree with the documented findings, disposition and treatment plan as described except to the extent set forth below. Patient is a 47-year-old white male with a history of chronic alcohol abuse who presents to the emergency department today by squad stating that he "wants to quit drinking". Medics report that he was actually standing at the end of his driveway waiting on them to pick him up today. Patient arrives with a GCS of 15 on arrival, awake alert and oriented 4. Patient is tremulous with the upper extremities and tachycardic and hypertensive on arrival. Patient states his last drink was at 6 PM last night, and drinks large quantities of alcohol daily. Patient was just hospitalized within the past week and sent initially to the emergency department for suicidal ideation while he was imprisoned, was cleared from a psychiatric standpoint and then admitted for alcohol withdrawal and mental status changes. Patient left the hospital AMA. Patient returns today requesting help stating that he does want to be admitted and wants to stop drinking alcohol. Patient denies any falls at home, no loss of consciousness, no history of falls or trauma. Patient is complaining of occasional chest pain at home that is worse with exertion and is stating some mild left-sided nonradiating chest pain on arrival approximately 3 out of 10 in severity. He denies any shortness of breath, no history of GI bleeding, bright red blood per rectum, or hemoptysis. Patient is also complaining of a mild generalized headache with some blurred vision. Patient has clear speech, and no focal neurologic deficits on arrival. Patient's physical exam findings as documented. Patient underwent a chest x-ray as well as CT head both imaging studies were unremarkable. Lab evaluation shows a negative alcohol level, cocaine and benzos were positive in his urine drug screen. EKG was obtained due to the reported cocaine use and chest pain on arrival. EKG does not show any acute ischemia does show some early re-pole which is seen on his prior EKG. Patient' s pain resolved following aspirin administration here. Patient received IV fluid bolus, banana bag, and Ativan for his withdrawal symptoms. Vital signs improved significantly following IV fluids and Ativan. Patient's resting comfortably currently with no acute distress. He denies any prior history of seizures. Patient with elevated transaminases although not consistent with changes typically seen with alcohol abuse. GGT is normal. We will admit the patient for alcohol withdrawal, elevated transaminases as well as cocaine associated chest pain. Case was discussed with hospitalist who accepted patient for admission for further evaluation and management.
[2017-09-11 10:27] LABS: Alanine Aminotransferase 187 Units/L (0-55); Albumin 3.3 g/dL (3.5-5.0); Albumin/Globulin Ratio 0.9 (1.1-2.2); Alkaline Phosphatase 148 Units/L (38-126); Aspartate Amino Transferase 116 Units/L (5-34); Gamma Glutamyl Transpeptidase 54 Units/L (12-64); Globulin 3.7 g/dL (2.4-3.5); Lipase 50 Units/L (8-78)
[2017-09-11 10:30] LABS: Amphetamine Screen,Urine Negative ng/mL (Cutoff=1000); Barbiturate Screen,Urine Negative ng/mL (Cutoff=200); Benzodiazepines Screen,Urine Positive ng/mL (Cutoff=200); Cannabinoid Screen,Urine Negative ng/mL (Cutoff = 50); Cocaine Screen,Urine Positive ng/mL (Cutoff= 300); Opiate Screen,Urine Negative ng/mL (Cutoff=300); Phencyclidine Screen,Urine Negative ng/mL (Cutoff=25)
[2017-09-11 10:33] LABS: Bilirubin,Total < 0.2 mg/dL (0.2-1.2)
[2017-09-11 10:44] LABS: BUN/Creatinine Ratio 10 (6-26); eGFR For African Americans > 60 (> 60); eGFR For Non-African Americans > 60 (> 60)
[2017-09-11 10:45] LABS: Ethanol < 10 mg/dL (0-10)
[2017-09-11 11:07] LABS: Thyroid Stimulating Hormone 0.123 mcIU/mL (0.350-4.840)
[2017-09-11] MEDS ORDERED: 0.9 % Sodium Chloride 1,000 ML IVC SCH (11:15)
[2017-09-11] MEDS ORDERED: Naloxone 0.4 MG/ML INJ IVP PRN (12:37)
--- NOTE | 2017-09-11 12:46 | Internal Med History&Physical ---
Date of Encounter: 09/11/17 Time of Encounter: 12:45 Assessment and Plan (1) Alcohol withdrawal delirium Current visit: No Status: Resolved Dre is mildly delirious and this is likely secondary to alcohol withdrawal Plan: We will start him on alcohol withdrawal protocol/CIWA protocol We will admit him as an inpatient. We will start IV fluids. We will give Ativan as per protocol. Folate/thiamine/vitamin as per protocol. Explained patient at length that if he wants to sign AGAINST MEDICAL ADVICE be dangerous to his health. Patient verbalizes understanding. (2) Accelerated hypertension Current visit: No Status: Acute Hypertension likely secondary to alcohol withdrawal. (3) Polysubstance abuse Current visit: Yes Status: Acute Noted that patient's urine is positive for cocaine. (4) Transaminitis Current visit: Yes Status: Acute Likely secondary to hepatitis B/cocaine Radiology for TRANSAMINITIS can be multifactorial. (5) Hepatitis B Current visit: Yes Status: Acute Patient is known to have hepatitis B. Qualifiers: Viral hepatitis chronicity: unspecified Hepatic coma status: without hepatic coma Hepatitis delta agent presence: without delta-agent Qualified Code(s): B19.10 - Unspecified viral hepatitis B without hepatic coma (6) Anxiety Current visit: Yes Status: Acute Patient is very anxious and that is a good possibility that he might leave AGAINST MEDICAL ADVICE. Internal Medicine - H&P: HPI Chief complaint: shaking Admitted From: Emergency Dept Plans for Post Hospital Care: Home History of present illness: Mr. Vale is a 47 year old male who was recently hospitalized for a goal weight all in this hospital. Patient left hospital AGAINST MEDICAL ADVICE on last Tuesday. The reason he left against medical advise because he wanted to go outside and drink alcohol. Patient came back to the emergency room for complaining of worsening shaking and he feels that he is getting into or cold withdrawal. Patient's last drink was on a Tuesday. Patient denies chest pain, shortness of breath, nausea, vomiting, abdominal pain, dizziness and diarrhea. Patient was evaluated in the emergency room and it was noted that he was shaking and he had a lot of tremors. Patient also was complaining of occasional headache. Patient denies any tingling numbness or hallucinations. Is not for admission: Possible alcohol withdrawal. Past Med Surg Social Fam HX - Past Medical History Medical history: hypertension Psychiatric history: no psych history - Past Surgical History Surgical History: other - Social History Smoking Status: Current every day smoker Smokeless Tobacco Status: No Alcohol use: heavy, recent Drug use: cocaine, prescription drug abuse - Family History Mother Hx Family Endocrine Disorder: Yes (DM) Internal Medicine - H&P: Meds No Known Home Drugs 09/05/17 [History] 3 Allergy/AdvReac Type Severity Reaction Status Date / Time No Known Allergies Allergy Verified 09/05/17 10:14 All Systems PM: A 10-system review of systems was performed and is negative for pertinent findings except as documented above in the HPI. - Constitutional Constitutional: no chills, no fever(s), no night sweats - EENT Eyes: no change in vision, no discharge, no pain, no photophobia Ears: no ear discharge, no ear pain, no tinnitus Nose, mouth and throat: no dysphagia, no nasal discharge, no neck pain, no sore throat - Cardiovascular Cardiovascular ROS IM: no chest pain, no diaphoresis, no dyspnea, no lightheadedness, no palpitations, no syncope - Respiratory Respiratory: no cough, no dyspnea, no wheezing, no excessive phlegm production - Gastrointestinal Gastrointestinal: no abdominal pain, no diarrhea, no hematemesis, no hematochezia, no melena, no nausea, no vomiting - Musculoskeletal Musculoskeletal ROS IM: no numbness, no tingling - Integumentary Integumentary IM: no rash, no unusual bruising - Neurological Neurological ROS: no confusion, no convulsions, no focal weakness, no numbness, no tingling, no tremor(s) - Hematologic/Lymphatic Hematologic/Lymphatic: no easy bruising - Constitutional Vitals: Temp Pulse Resp BP Pulse Ox 98 F 58 16 167/109 98 09/11/17 09:31 09/11/17 12:00 09/11/17 12:00 09/11/17 12:00 09/11/17 12:00 General appearance: Present: A&O X 3, morbidly obese, pleasant, answers questions appropriately - Head Head exam: Present: atraumatic, normocephalic - Eye Eye exam: Present: PERRL, conjuntiva pink, sclera anicteric Pupils: Present: PERRL - Neck Neck exam general surgery: Present: supple, trachea midline. Absent: lymphadenopathy - Respiratory Respiratory exam: Present: CTAB. Absent: accessory muscle use, rales, rhonchi, wheezes - Cardiovascular Cardiovascular exam: Present: RRR, +S1, +S2. Absent: diastolic murmur, gallop, rubs, systolic murmur - GI/Abdominal GI/Abdominal exam: Present: normal bowel sounds, soft, no peritoneal signs. Absent: distended, tenderness - Extremities Exam Extremities exam: Present: warm, radial pulses palpable and symmetrical. Absent : calf tenderness, cyanotic, pedal edema - Neurological Exam Neurological exam: Present: CN II-XII intact, oriented X3, no focal deficits. Absent: pronater drift, facial droop, speech deficit - Skin Skin exam: Present: dry, intact Internal Med - H&P Results - Labs CBC & Chem 7: 09/11/17 09:41 09/11/17 09:41
[2017-09-11 13:07] LABS: Amylase 44 Units/L (25-125)
[2017-09-11] MEDS: *HR* LORazepam 2 MG/ML VIAL IVP PRN ×3 (15:02→21:32)
[2017-09-11] MEDS ORDERED: Acetaminophen 325 MG TABLET PO ONE (15:19)
[2017-09-11] MEDS: Nicotine 21 MG PATCH.TD24 TD SCH (18:57)
[2017-09-11] MEDS: 0.9 % Sodium Chloride 1,000 ML IVC SCH ×2 (19:20→22:54)
[2017-09-11] MEDS ORDERED: *HR* LORazepam 2 MG/ML VIAL IVP SCH (20:00)
[2017-09-11] MEDS ORDERED: *HR* LORazepam 2 MG/ML VIAL IVP PRN (21:56)
[2017-09-12] MEDS: *HR* LORazepam 2 MG/ML VIAL IVP PRN ×2 (00:10→07:59)
[2017-09-12 00:30] LABS: Basophils % 0.3 %; Eosinophils # 0.3 K/mcL (0.0-0.6); Eosinophils % 4.4 %; Hematocrit 41.1 % (37.5-50.1); Immature Granulocytes % 0.2 % (0-4); Immature Platelets 3.3 % (1.1-6.1); Lymphocytes # 2.3 K/mcL (0.6-4.6); Lymphocytes % 35.6 %; Mean Corpuscular HGB Conc 34.1 g/dL (31.6-35.5); Mean Corpuscular Volume 93.8 fL (83.0-100.0); Mean Platelet Volume 9.9 fL (9.4-12.4); Monocytes # 0.7 K/mcL (0.0-1.3); Monocytes % 11.7 %; Platelet Count 185 K/mcL (140-400); Red Blood Count 4.38 M/mcL (4.19-5.50); Segmented Neutrophils % 47.8 %
[2017-09-12 00:36] LABS: INR 1.1; Prothrombin Time 12.3 Seconds (9.4-12.1)
[2017-09-12 00:38] LABS: Activated Partial Thrombo Time 27.7 Seconds (26.0-36.0)
[2017-09-12 00:46] LABS: Alanine Aminotransferase 176 Units/L (0-55); Albumin 3.2 g/dL (3.5-5.0); Albumin/Globulin Ratio 0.9 (1.1-2.2); Alkaline Phosphatase 100 Units/L (38-126); Aspartate Amino Transferase 105 Units/L (5-34); BUN/Creatinine Ratio 6 (6-26); Bilirubin,Total 0.2 mg/dL (0.2-1.2); Blood Urea Nitrogen 7 mg/dL (8-26); Calcium 8.8 mg/dL (8.6-10.8); Carbon Dioxide 24 mEq/L (19-29); Chloride 109 mEq/L (98-109); Chol/HDL Ratio 4.4 (0-4.9); Cholesterol 140 mg/dL (< 200); Globulin 3.6 g/dL (2.4-3.5); Glucose 100 mg/dL (70-99); HDL Cholesterol 32 mg/dL (40-59); LDL Cholesterol,Calculated 74 mg/dL (0-99); Magnesium 2.1 mg/dL (1.6-2.6); Osmolality,Calculated 288 (280-300); Potassium 3.7 mEq/L (3.5-4.5); Sodium 140 mEq/L (136-145); Total Protein 6.8 g/dL (6.0-8.3); Triglycerides 168 mg/dL (< 150); eGFR For African Americans > 60 (> 60); eGFR For Non-African Americans > 60 (> 60)
[2017-09-12 00:57] LABS: Ethanol < 10 mg/dL (0-10)
[2017-09-12] MEDS ORDERED: Acetaminophen 325 MG TABLET PO PRN ×2 (07:49→09:03)
[2017-09-12] MEDS: Nicotine 21 MG PATCH.TD24 TD SCH (07:59)
[2017-09-12] MEDS ORDERED: *HR* LORazepam 2 MG/ML VIAL IVP PRN ×3 (08:03)
[2017-09-12] MEDS ORDERED: Thiamine (B-1) 100 MG TABLET PO SCH (09:00)
[2017-09-12] MEDS ORDERED: Vitamin B Complex/Vit C/Vit E 1 EACH TABLET PO SCH (09:00)
[2017-09-12] MEDS ORDERED: Folic Acid 1 MG TABLET PO SCH (09:00)
--- NOTE | 2017-09-12 09:08 | Internal Med Progress Note ---
Date of Encounter: 09/12/17 Time of Encounter: 09:06 - Assessment and plan (1) Alcohol withdrawal syndrome Status: Acute Qualifiers: Complication of substance-induced condition: with unspecified complication Qualified Code(s): F10.239 - Alcohol dependence with withdrawal, unspecified (2) Transaminitis Status: Acute (3) Polysubstance abuse Status: Acute (4) Accelerated hypertension Status: Acute (5) Hepatitis B Status: Acute Qualifiers: Viral hepatitis chronicity: unspecified Hepatic coma status: without hepatic coma Hepatitis delta agent presence: without delta-agent Qualified Code(s): B19.10 - Unspecified viral hepatitis B without hepatic coma (6) Tobacco abuse Status: Acute - Subjective Interval history: Please consider this note as my discharge summary as patient left AMA and no discharge instructions could be given. Patient left AMA last Tuesday after being admitted for alcohol withdrawal has return last night with the same problem and claims that he has not been drinking since Tuesday but going through withdrawals. Urine drug screen shows cocaine. Patient is complaining of headaches. He is on CIWA protocol. We will give him a very short course of Tylenol considering that his transaminases are abnormal. I suspect he is going through alcoholic hepatitis and I will follow on his CMP. Unfortunately he has been diagnosed with hepatitis B also which needs to be addressed once he passed through this episode. Brief counseling provided and patient will need social work consultation before discharge. He is on IV fluids and electrolytes need to be checked tomorrow. Addendum: Patient decided to leave AMA again saying that he has to be somewhere. RN could not get chance to call us , as it happened so fast. - Constitutional Vitals: Temp Pulse Resp BP Pulse Ox 97.5 F L 64 12 155/104 98 09/12/17 06:37 09/12/17 06:37 09/12/17 06:37 09/12/17 06:37 09/12/17 07:54 General appearance: Present: A&O X 3, obese, answers questions appropriately - Head Head exam: Present: atraumatic, normocephalic - Eye Eye exam: Present: PERRL, conjuntiva pink, sclera anicteric Pupils: Present: PERRL - Neck Neck exam general surgery: Present: supple, trachea midline. Absent: lymphadenopathy - Respiratory Respiratory exam: Present: CTAB. Absent: accessory muscle use, rales, rhonchi, wheezes - Cardiovascular Cardiovascular exam: Present: RRR, +S1, +S2. Absent: diastolic murmur, gallop, rubs, systolic murmur - GI/Abdominal GI/Abdominal exam: Present: normal bowel sounds, soft, no peritoneal signs. Absent: distended, tenderness - Extremities Exam Extremities exam: Present: warm, radial pulses palpable and symmetrical. Absent : calf tenderness, cyanotic, pedal edema - Neurological Exam Neurological exam: Present: CN II-XII intact, oriented X3, no focal deficits. Absent: pronater drift, facial droop, speech deficit Additional comments: bilateral upper extremity tremors - Skin Skin exam: Present: dry, intact Internal Medicine: Result - Labs CBC & Chem 7: 09/12/17 00:20 09/12/17 00:20 Labs: Short CBC 09/12/17 Range/Units 00:20 WBC 6.3 (4.3-11.1) K/mcL Hgb 14.0 (12.9-16.9) g/dL Hct 41.1 (37.5-50.1) % Plt Count 185 (140-400) K/mcL Neutrophils # 3.0 (1.6-8.9) K/mcL BMP 09/12/17 00:20 Sodium 140 Potassium 3.7 Chloride 109 Carbon Dioxide 24 BUN 7 L Creatinine 1.21 Glucose 100 H Calcium 8.8 Cardiac Enzymes 09/11/17 09/12/17 Range/Units 18:23 00:20 Troponin I 0.01 0.01 (0-0.03) ng/mL Liver Function 09/12/17 Range/Units 00:20 Total Bilirubin 0.2 (0.2-1.2) mg/dL AST 105 H (5-34) Units/L ALT 176 H (0-55) Units/L Alkaline Phosphatase 100 (38-126) Units/L Albumin 3.2 L (3.5-5.0) g/dL - ABG Interpretation ABG results: PT/INR, D-dimer PT 12.3 Seconds (9.4-12.1) H 09/12/17 00:20 Consult Discharge Plan - Plan Additional Instructions: Patient left AMA Referrals: NONE,PCP [Primary Care Provider] -
[2017-09-12] MEDS ORDERED: *HR* LORazepam 2 MG/ML VIAL IVP SCH (09:45)
[2017-09-12] MEDS ORDERED: Ondansetron 4 MG/2 ML VIAL IVP PRN (10:01)
[2017-09-12] MEDS ORDERED: Pantoprazole 40 MG VIAL IVP ONE (10:08)
[2017-09-12 11:15] VITALS: BP 157/110
[2017-09-12] MEDS ORDERED: Ondansetron 4 MG/2 ML VIAL IVP SCH (12:00)
--- NOTE | 2017-09-12 15:04 | Electrocardiograph Report ---
[address] [place] [address] Test Date: 2017-09-11 Pat Name: Jamaal Vale Department: 102 Room: 2A13 Gender: Fullerette: : 1970 Requested By: Santos Castaneda Order Number: [id number] Reading MD: Carlos Keenan MD Measurements Intervals [place] Rate: 66 P: 24 NV: 203 QRS: -26 QRSD: 121 T: 45 QT: 409 QTc: 423 Interpretive Statements SINUS RHYTHM BORDERLINE LEFT AXIS DEVIATION MODERATE INTRAVENTRICULAR CONDUCTION DELAY BASELINE ARTIFACT Electronically Signed On 09-12-2017 15:02:59 EST by Carlos Keenan MD
[2017-09-12] MEDS ORDERED: Pantoprazole 40 MG VIAL IVP SCH (18:00)
== END 2017-09-12 13:05 | disposition left against medical advice (07) | DRG 770 ==
LOC: EMEROO 09:30 → 2ANU 09:30
PROVIDERS: ADMIT Internal Medicine; ATTEND Internal Medicine

== ENCOUNTER 2018-04-12 10:29 | Observation (INO) ==
[2018-04-12] MEDS ORDERED: Nitroglycerin 0.4 MG TAB.SUBL SL PRN (10:52)
[2018-04-12 10:53] LABS: Bilirubin,Urine Negative (Negative); Blood,Urine Negative (Negative); Clarity,Urine Clear (Clear); Color,Urine Yellow (Yellow); Glucose,Urine (UA) Normal (Normal); Ketones,Urine Negative (Negative); Leukocyte Esterase,Urine Negative (Negative); Nitrite,Urine Negative (Negative); Protein,Urine Negative (Neg-Trace); Specific Gravity,Urine 1.016 (1.010-1.025); Urobilinogen,Urine Normal (Normal)
--- NOTE | 2018-04-12 10:54 | Emergency Department Note ---
Disposition Clinical Impression: Hypertensive emergency Chest pain Qualifiers: Chest pain type: unspecified Qualified Code(s): R07.9 - Chest pain, unspecified Injury of right hand Qualifiers: Encounter type: initial encounter Qualified Code(s): S69.91XA - Unspecified injury of right wrist, hand and finger(s), initial encounter Disposition: Admitted As Inpatient Condition: Undetermined Referrals: Cynthia Mendes CNP [Primary Care Provider] - Forms: ED Satisfaction Letter Chest Pain HPI - General Chief Complaint: ED Chest Pain Stated Complaint: Hypertension,right arm pain Time Seen by Provider: 04/12/18 10:39 Source: patient Mode of arrival: ambulatory Limitations: no limitations Vital Signs Reviewed: Yes Nursing Notes Reviewed: Yes - History of Present Illness HPI Narrative: 47-year-old male with history of hypertension on lisinopril, arrives to the emergency department with complaint of 2 weeks of right upper extremity pain, hypertension with a systolic at 217. The patient denies any chest pain or shortness of breath. The patient's pain is in the right shoulder radiating down into his right upper extremity. The patient denies any chest pain, difficulty breathing, abdominal pain, dysuria. Patient states he has been off and on over the past few weeks. He has no previous history of stress testing or cardiac catheter. In addition the patient does have a family history of [place] but not an early age. The patient is a smoker. He does have a history of cocaine use as well. He denies any other complaints at this time. He is resting comfortably in the murphy but is complaining of right upper extremity pain. Severity scale (1-10): 8 - Related Data Home Medications Medication Instructions Recorded Confirmed Ibuprofen 04/12/18 Neurontin 04/12/18 Tylenol 04/12/18 Previous Rx's Medication Instructions Recorded Lisinopril [Zestril] 10 mg PO DAILY #20 tablet 12/01/17 Allergies Allergy/AdvReac Type Severity Reaction Status Date / Time No Known Allergies Allergy Verified 04/12/18 09:52 All systems ED: reviewed and negative except as stated. Constitutional: Denies: fever, chills, weakness ENT ED: Denies: congestion Cardiovascular: Denies: chest pain, dyspnea on exertion, syncope Respiratory: Denies: dyspnea Gastrointestinal: Denies: abdominal pain, nausea, vomiting, diarrhea Genitourinary: Denies: urgency, dysuria Musculoskeletal: Reports: neck pain, arthralgia, myalgia. Denies: back pain Integumentary: Denies: rash, abrasion Neurological: Denies: headache, weakness, numbness, paresthesias Chest Pain PMH - Past Medical History Medical history: Reports: hepatitis, hypertension Surgical history: Reports: other Psychiatric history: Reports: no psych history - Social History Smoking Status: Current every day smoker Alcohol use: Reports: occasionally Drug use: Reports: cocaine, prescription drug abuse Physical Exam - General Limitations: no limitations General appearance: alert, in no apparent distress - Head Head exam: atraumatic, normocephalic, normal inspection - Eye Eye exam: Present: normal appearance, PERRL, EOMI - ENT ENT exam: normal exam, normal oropharynx, mucous membranes moist - Neck Neck exam: Present: normal inspection, full ROM, trachea midline - Chest Chest inspection: Present: normal inspection, symmetric chest wall rise - Respiratory Respiratory exam: Present: normal lung sounds bilaterally - Cardiovascular Cardiovascular exam: Present: regular rate, normal rhythm, normal heart sounds - Abdominal Exam Abdominal exam: Present: soft, Non-Tender. Absent: tenderness, distention, guarding, rebound, rigidity - Extremities Exam Extremities exam: Present: normal inspection, full ROM. Absent: tenderness (No tenderness to Right shoulder), pedal edema - Neurological Exam Neurological exam: Present: alert, oriented X3 - Skin Skin exam: Present: warm, dry, intact, normal color Course Vital Signs Temperature 98.0 F 04/12/18 10:31 Pulse Rate 63 04/12/18 10:31 Respiratory Rate 18 04/12/18 10:31 Blood Pressure 217/130 04/12/18 10:31 O2 Sat by Pulse Oximetry 98 04/12/18 10:31 Temperature 98.0 F 04/12/18 10:35 Pulse Rate 60 04/12/18 12:28 Respiratory Rate 12 04/12/18 12:28 Blood Pressure 149/109 04/12/18 12:28 O2 Sat by Pulse Oximetry 100 04/12/18 12:28 Oxygen Delivery Oxygen Delivery Room Air Chest Pain - MDM Narrative Medical decision making narrative: Patient's workup in the emergency department demonstrates findings consistent with hypertensive emergency. The patient was administered nitroglycerin which reduced his chest pain to 0. The patient is still having mild right upper extremity and right shoulder pain. Patient was administered analgesics for this. His right hand demonstrates no acute fractures but given the swelling and type of injury the patient was administered 1 dose of Augmentin here in the ED. The patient's chest x-ray as well as EKG demonstrated no acute findings. His troponin is negative blood we will admit the patient to the hospital to trend the patient's troponin and likely receive cardiac workup as well as further evaluation of his hypertension. The patient was made aware and agrees to plan. No further questions or concerns noted at this time. Accepted by Dr. Ortiz. - Lab Data Lab results reviewed: Yes I reviewed the patient's lab results. Result diagrams: 04/12/18 11:03 04/12/18 11:03 Lab Results 04/12/18 04/12/18 04/12/18 Range/Units 10:42 11:03 11:03 WBC 6.9 (4.3-11.1) K/mcL RBC 5.13 (4.19-5.50) M/mcL Hgb 16.3 (12.9-16.9) g/dL Hct 48.2 (37.5-50.1) % MCV 94.0 (83.0-100.0) fL MCH 31.8 (28.0-33.3) pg MCHC 33.8 (31.6-35.5) g/dL RDW 12.7 (11.5-14.5) % Plt Count 179 (140-400) K/mcL MPV 10.5 (9.4-12.4) fL Immature Gran % 0.4 (0-4) % Seg Neutrophils % 51.2 % Lymphocytes % 33.9 % Monocytes % 10.3 % Eosinophils % 3.6 % Basophils % 0.6 % Neutrophils # 3.5 (1.6-8.9) K/mcL Lymphocytes # 2.3 (0.6-4.6) K/mcL Monocytes # 0.7 (0.0-1.3) K/mcL Eosinophils # 0.3 (0.0-0.6) K/mcL Basophils # 0.0 (0.0-0.2) K/mcL PT 11.2 (9.4-12.1) Seconds INR 1.0 APTT 32.5 (26.0-36.0) Seconds Sodium (136-145) mEq/L Potassium (3.5-5.1) mEq/L Chloride (98-107) mEq/L Carbon Dioxide (23-29) mEq/L BUN (6-20) mg/dL Creatinine (0.70-1.30) mg/dL Est GFR ( Amer) (> 60) Est GFR (Non-Af Amer) (> 60) BUN/Creatinine Ratio (6-26) Glucose (70-105) mg/dL Calculated Osmolality (280-300) Calcium (8.6-10.3) mg/dL Troponin I (< 0.04) ng/mL Urine Color Yellow (Yellow) Urine Clarity Clear (Clear) Urine pH 7.0 (5.0-8.0) pH Units Ur Specific [place] 1.016 (1.010-1.025) Urine Protein Negative (Neg-Trace) mg/dL Urine Glucose (UA) Normal (Normal) mg/dL Urine Ketones Negative (Negative) mg/dL Urine Blood Negative (Negative) Urine Nitrite Negative (Negative) Urine Bilirubin Negative (Negative) Urine Urobilinogen Normal (Normal) mg/dL Ur Leukocyte Esterase Negative (Negative) Ur Culture Indicated? NO (NO) 04/12/18 Range/Units 11:03 WBC (4.3-11.1) K/mcL RBC (4.19-5.50) M/mcL Hgb (12.9-16.9) g/dL Hct (37.5-50.1) % MCV (83.0-100.0) fL MCH (28.0-33.3) pg MCHC (31.6-35.5) g/dL RDW (11.5-14.5) % Plt Count (140-400) K/mcL MPV (9.4-12.4) fL Immature Gran % (0-4) % Seg Neutrophils % % Lymphocytes % % Monocytes % % Eosinophils % % Basophils % % Neutrophils # (1.6-8.9) K/mcL Lymphocytes # (0.6-4.6) K/mcL Monocytes # (0.0-1.3) K/mcL Eosinophils # (0.0-0.6) K/mcL Basophils # (0.0-0.2) K/mcL PT (9.4-12.1) Seconds INR APTT (26.0-36.0) Seconds Sodium 136 (136-145) mEq/L Potassium 4.1 (3.5-5.1) mEq/L Chloride 103 (98-107) mEq/L Carbon Dioxide 30 H (23-29) mEq/L BUN 15 (6-20) mg/dL Creatinine 1.23 (0.70-1.30) mg/dL Est GFR ( Amer) > 60 (> 60) Est GFR (Non-Af Amer) > 60 (> 60) BUN/Creatinine Ratio 12 (6-26) Glucose 113 H (70-105) mg/dL Calculated Osmolality 284 (280-300) Calcium 9.8 (8.6-10.3) mg/dL Troponin I < 0.03 (< 0.04) ng/mL Urine Color (Yellow) Urine Clarity (Clear) Urine pH (5.0-8.0) pH Units Ur Specific [place] (1.010-1.025) Urine Protein (Neg-Trace) mg/dL Urine Glucose (UA) (Normal) mg/dL Urine Ketones (Negative) mg/dL Urine Blood (Negative) Urine Nitrite (Negative) Urine Bilirubin (Negative) Urine Urobilinogen (Normal) mg/dL Ur Leukocyte Esterase (Negative) Ur Culture Indicated? (NO) - Radiology Data Radiology results reviewed: Yes I reviewed the patient's radiology results. Chest X-Ray 04/12/18 10:50 IMPRESSION: 1. No active pulmonary disease. D/ / Ovidio Lee MD / Ovidio Lee MD Interpreting Provider: Ovidio Lee MD Hand X-Ray 04/12/18 11:19 IMPRESSION: No acute osseous abnormality. D/ / Adrien Aguayo MD / Adrien Aguayo MD Interpreting Provider: Adrien Aguayo MD - EKG Data EKG attestation: Yes I reviewed and interpreted this EKG. EKG results narrative: Heart rate 60 beats for minute. No ST elevation or ST depression noted. Elevated J point noted in V2. EKG is fairly similar to EKG of from every first 2018. No acute changes noted.
[2018-04-12 11:19] LABS: Basophils % 0.6 %; Eosinophils # 0.3 K/mcL (0.0-0.6); Eosinophils % 3.6 %; Hematocrit 48.2 % (37.5-50.1); Hemoglobin 16.3 g/dL (12.9-16.9); Immature Granulocytes % 0.4 % (0-4); Lymphocytes # 2.3 K/mcL (0.6-4.6); Lymphocytes % 33.9 %; Mean Corpuscular HGB Conc 33.8 g/dL (31.6-35.5); Mean Corpuscular Hemoglobin 31.8 pg (28.0-33.3); Mean Platelet Volume 10.5 fL (9.4-12.4); Monocytes # 0.7 K/mcL (0.0-1.3); Monocytes % 10.3 %; Neutrophils # 3.5 K/mcL (1.6-8.9); Platelet Count 179 K/mcL (140-400); Red Blood Count 5.13 M/mcL (4.19-5.50); Red Cell Distribution Width 12.7 % (11.5-14.5); Segmented Neutrophils % 51.2 %
[2018-04-12 11:26] LABS: Prothrombin Time 11.2 Seconds (9.4-12.1)
--- NOTE | 2018-04-12 11:27 | Emergency Department Note ---
Disposition Clinical Impression: Chest pain, Hypertensive emergency, Injury of right hand Disposition: Admitted As Inpatient Condition: Undetermined Referrals: Cynthia Mendes, [employer] [Primary Care Provider] - Forms: ED Satisfaction Letter General Adult HPI - General Chief complaint: ED Chest Pain Stated complaint: Hypertension,right arm pain Time Seen by Provider: 04/12/18 10:39 Source: patient Mode of arrival: ambulatory Limitations: no limitations - History of Present Illness Pain Scale: 8 - Related Data Home Medications Medication Instructions Recorded Confirmed Ibuprofen 04/12/18 Neurontin 04/12/18 Tylenol 04/12/18 Previous Rx's Medication Instructions Recorded Lisinopril [Zestril] 10 mg PO DAILY #20 tablet 12/01/17 Allergies Allergy/AdvReac Type Severity Reaction Status Date / Time No Known Allergies Allergy Verified 04/12/18 09:52 Constitutional: Denies: fever, chills, weakness ENT ED: Denies: congestion Cardiovascular: Denies: chest pain, dyspnea on exertion, syncope Respiratory: Denies: dyspnea Gastrointestinal: Denies: abdominal pain, nausea, vomiting, diarrhea Genitourinary: Denies: urgency, dysuria Musculoskeletal: Reports: neck pain, arthralgia, myalgia. Denies: back pain Integumentary: Denies: rash, abrasion Neurological: Denies: headache, weakness, numbness, paresthesias Past Medical History - Past Medical History Medical history: Reports: hepatitis, hypertension Surgical history: Reports: other Psychiatric history: Reports: no psych history - Social History Smoking Status: Current every day smoker Smokeless Tobacco Status: Yes Alcohol use: Reports: occasionally Drug use: Reports: cocaine, prescription drug abuse Physical Exam - General Limitations: no limitations General appearance: alert, in no apparent distress Course Vital Signs Temperature 98.0 F 04/12/18 10:31 Pulse Rate 63 04/12/18 10:31 Respiratory Rate 18 04/12/18 10:31 Blood Pressure 217/130 04/12/18 10:31 O2 Sat by Pulse Oximetry 98 04/12/18 10:31 Temperature 98.0 F 04/12/18 10:35 Pulse Rate 60 04/12/18 12:28 Respiratory Rate 12 04/12/18 12:28 Blood Pressure 149/109 04/12/18 12:28 O2 Sat by Pulse Oximetry 100 04/12/18 12:28 Oxygen Delivery Oxygen Delivery Room Air Medical Decision Making - Lab Data Result diagrams: 04/12/18 11:03 04/12/18 11:03 Lab Results 04/12/18 04/12/18 04/12/18 Range/Units 10:42 11:03 11:03 WBC 6.9 (4.3-11.1) K/mcL RBC 5.13 (4.19-5.50) M/mcL Hgb 16.3 (12.9-16.9) g/dL Hct 48.2 (37.5-50.1) % MCV 94.0 (83.0-100.0) fL MCH 31.8 (28.0-33.3) pg MCHC 33.8 (31.6-35.5) g/dL RDW 12.7 (11.5-14.5) % Plt Count 179 (140-400) K/mcL MPV 10.5 (9.4-12.4) fL Immature Gran % 0.4 (0-4) % Seg Neutrophils % 51.2 % Lymphocytes % 33.9 % Monocytes % 10.3 % Eosinophils % 3.6 % Basophils % 0.6 % Neutrophils # 3.5 (1.6-8.9) K/mcL Lymphocytes # 2.3 (0.6-4.6) K/mcL Monocytes # 0.7 (0.0-1.3) K/mcL Eosinophils # 0.3 (0.0-0.6) K/mcL Basophils # 0.0 (0.0-0.2) K/mcL PT 11.2 (9.4-12.1) Seconds INR 1.0 APTT 32.5 (26.0-36.0) Seconds Sodium (136-145) mEq/L Potassium (3.5-5.1) mEq/L Chloride (98-107) mEq/L Carbon Dioxide (23-29) mEq/L BUN (6-20) mg/dL Creatinine (0.70-1.30) mg/dL Est GFR ( Amer) (> 60) Est GFR (Non-Af Amer) (> 60) BUN/Creatinine Ratio (6-26) Glucose (70-105) mg/dL Calculated Osmolality (280-300) Calcium (8.6-10.3) mg/dL Troponin I (< 0.04) ng/mL Urine Color Yellow (Yellow) Urine Clarity Clear (Clear) Urine pH 7.0 (5.0-8.0) pH Units Ur Specific [place] 1.016 (1.010-1.025) Urine Protein Negative (Neg-Trace) mg/dL Urine Glucose (UA) Normal (Normal) mg/dL Urine Ketones Negative (Negative) mg/dL Urine Blood Negative (Negative) Urine Nitrite Negative (Negative) Urine Bilirubin Negative (Negative) Urine Urobilinogen Normal (Normal) mg/dL Ur Leukocyte Esterase Negative (Negative) Ur Culture Indicated? NO (NO) 04/12/18 Range/Units 11:03 WBC (4.3-11.1) K/mcL RBC (4.19-5.50) M/mcL Hgb (12.9-16.9) g/dL Hct (37.5-50.1) % MCV (83.0-100.0) fL MCH (28.0-33.3) pg MCHC (31.6-35.5) g/dL RDW (11.5-14.5) % Plt Count (140-400) K/mcL MPV (9.4-12.4) fL Immature Gran % (0-4) % Seg Neutrophils % % Lymphocytes % % Monocytes % % Eosinophils % % Basophils % % Neutrophils # (1.6-8.9) K/mcL Lymphocytes # (0.6-4.6) K/mcL Monocytes # (0.0-1.3) K/mcL Eosinophils # (0.0-0.6) K/mcL Basophils # (0.0-0.2) K/mcL PT (9.4-12.1) Seconds INR APTT (26.0-36.0) Seconds Sodium 136 (136-145) mEq/L Potassium 4.1 (3.5-5.1) mEq/L Chloride 103 (98-107) mEq/L Carbon Dioxide 30 H (23-29) mEq/L BUN 15 (6-20) mg/dL Creatinine 1.23 (0.70-1.30) mg/dL Est GFR ( Amer) > 60 (> 60) Est GFR (Non-Af Amer) > 60 (> 60) BUN/Creatinine Ratio 12 (6-26) Glucose 113 H (70-105) mg/dL Calculated Osmolality 284 (280-300) Calcium 9.8 (8.6-10.3) mg/dL Troponin I < 0.03 (< 0.04) ng/mL Urine Color (Yellow) Urine Clarity (Clear) Urine pH (5.0-8.0) pH Units Ur Specific [place] (1.010-1.025) Urine Protein (Neg-Trace) mg/dL Urine Glucose (UA) (Normal) mg/dL Urine Ketones (Negative) mg/dL Urine Blood (Negative) Urine Nitrite (Negative) Urine Bilirubin (Negative) Urine Urobilinogen (Normal) mg/dL Ur Leukocyte Esterase (Negative) Ur Culture Indicated? (NO) Attestation Statement - Attestation Attestation: I examined this patient and my medical decision-making was reviewed with the Resident Physician. I agree with the documented findings, disposition and treatment plan as described except to the extent set forth below. Patient presents to the ED with a chief complaint of right shoulder pain. Patient went to urgent care was found to be hypertensive with systolic blood pressure over 200 and was sent to the ED. Patient states pain is in his right shoulder radiating around to his scapula. Denies cardiac history. He does admit to cocaine use last of which was one week ago. On examination he is in no acute distress. His shoulder pain is not reproducible. There is no overlying rash. Lungs clear. He still hypertensive. Plan. We will give her some hydralazine for the hypertension. Cardiac workup. Likely admission. Patient improved with nitroglycerin. Blood pressure improved with hydralazine. Admitted to medicine.
[2018-04-12 11:29] LABS: Activated Partial Thrombo Time 32.5 Seconds (26.0-36.0)
[2018-04-12 11:36] LABS: BUN/Creatinine Ratio 12 (6-26); Blood Urea Nitrogen 15 mg/dL (6-20); Calcium 9.8 mg/dL (8.6-10.3); Carbon Dioxide 30 mEq/L (23-29); Chloride 103 mEq/L (98-107); Glucose 113 mg/dL (70-105); Osmolality,Calculated 284 (280-300); Potassium 4.1 mEq/L (3.5-5.1); Sodium 136 mEq/L (136-145); Troponin I < 0.03 ng/mL (< 0.04); eGFR For African Americans > 60 (> 60); eGFR For Non-African Americans > 60 (> 60)
[2018-04-12] MEDS ORDERED: *HR* FentaNYL (PF) 100 MCG/2 ML VIAL IVP ONE (12:03)
[2018-04-12] MEDS ORDERED: Tdap (Boostrix) Vaccine 0.5 ML SYRINGE IM ONE (12:39)
[2018-04-12] MEDS ORDERED: Aspirin 325 MG TABLET PO ONE (12:39)
[2018-04-12] MEDS ORDERED: Acetaminophen 325 MG TABLET PO PRN (12:54)
[2018-04-12] MEDS ORDERED: Naloxone 0.4 MG/ML INJ IVP PRN (12:56)
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
[2018-04-12] MEDS ORDERED: *HR* LORazepam 2 MG/ML VIAL IVP PRN ×3 (13:04)
[2018-04-12] MEDS ORDERED: traMADol 50 MG TABLET PO PRN (14:47)
[2018-04-12] MEDS: amLODIPine 5 MG TABLET PO SCH (16:01)
[2018-04-12] MEDS: Gabapentin 300 MG CAPSULE PO SCH ×2 (16:01→20:01)
[2018-04-12] MEDS: Nicotine 14 MG PATCH.TD24 TD SCH (16:02)
[2018-04-12] MEDS: Piperacillin/Tazobactam 3.375 GM in 0.9 % Sodium Chloride Mini Bag 100 ML IVPB SCH ×3 (16:02→23:27)
[2018-04-12 16:12] LABS: Amphetamine Screen,Urine Negative ng/mL (Cutoff=1000); Barbiturate Screen,Urine Negative ng/mL (Cutoff=200); Benzodiazepines Screen,Urine Negative ng/mL (Cutoff=200); Cannabinoid Screen,Urine Negative ng/mL (Cutoff = 50); Cocaine Screen,Urine Negative ng/mL (Cutoff= 300); Opiate Screen,Urine Positive ng/mL (Cutoff=300); Phencyclidine Screen,Urine Negative ng/mL (Cutoff=25)
--- NOTE | 2018-04-12 16:48 | Electrocardiograph Report ---
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
[2018-04-12] MEDS ORDERED: Ketorolac 30 MG/ML VIAL IVP ONE (19:31)
[2018-04-12] MEDS: Ketorolac 15 MG/ML VIAL IVP SCH (23:28)
[2018-04-13] MEDS: Ketorolac 15 MG/ML VIAL IVP SCH ×3 (05:28→17:40)
[2018-04-13] MEDS ORDERED: *HR* Enoxaparin 40 MG/0.4 ML SYRINGE SQ SCH ×2 (06:00)
[2018-04-13 06:26] LABS: Basophils % 0.3 %; Eosinophils # 0.3 K/mcL (0.0-0.6); Eosinophils % 4.3 %; Hematocrit 46.1 % (37.5-50.1); Hemoglobin 15.6 g/dL (12.9-16.9); Immature Granulocytes % 0.2 % (0-4); Lymphocytes # 2.3 K/mcL (0.6-4.6); Lymphocytes % 35.3 %; Mean Corpuscular HGB Conc 33.8 g/dL (31.6-35.5); Mean Corpuscular Hemoglobin 31.7 pg (28.0-33.3); Mean Corpuscular Volume 93.7 fL (83.0-100.0); Mean Platelet Volume 10.3 fL (9.4-12.4); Monocytes # 0.7 K/mcL (0.0-1.3); Neutrophils # 3.2 K/mcL (1.6-8.9); Platelet Count 169 K/mcL (140-400); Red Blood Count 4.92 M/mcL (4.19-5.50); Red Cell Distribution Width 12.9 % (11.5-14.5); Segmented Neutrophils % 48.9 %
[2018-04-13 06:53] LABS: BUN/Creatinine Ratio 13 (6-26); Blood Urea Nitrogen 17 mg/dL (6-20); Calcium 9.4 mg/dL (8.6-10.3); Carbon Dioxide 26 mEq/L (23-29); Chloride 107 mEq/L (98-107); Glucose 116 mg/dL (70-105); Osmolality,Calculated 291 (280-300); Potassium 4.3 mEq/L (3.5-5.1); Sodium 139 mEq/L (136-145); eGFR For African Americans > 60 (> 60); eGFR For Non-African Americans 60 (> 60)
[2018-04-13] MEDS: Piperacillin/Tazobactam 3.375 GM in 0.9 % Sodium Chloride Mini Bag 100 ML IVPB SCH (09:24)
[2018-04-13] MEDS: amLODIPine 5 MG TABLET PO SCH (09:25)
[2018-04-13] MEDS: Nicotine 14 MG PATCH.TD24 TD SCH (09:26)
[2018-04-13] MEDS: Gabapentin 300 MG CAPSULE PO SCH ×2 (09:26→15:11)
[2018-04-13 15:46] VITALS: BP 141/78
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
[2018-04-13] MEDS ORDERED: cloNIDine HCl 0.1 MG TABLET PO SCH (21:00)
== END 2018-04-13 19:55 | disposition home or self-care (01) ==
LOC: EMEROO 10:29 → 2NENU 14:23 → INTOOBSV 14:23 → 2NENU 15:08
PROVIDERS: ADMIT Family Medicine; ATTEND Family Medicine